=== PATIENT | male | born 1940 | race Caucasian/White ===

== ENCOUNTER 2024-07-28 12:53 | Outpatient (OUT) | payer OTHER, SELFPAY ==
--- NOTE | 2024-07-28 13:05 | CT_ITS ---
The [address] [address] Patient Name: RUBEN BRUNSON MRN: [id number] date: 1940 Sex: M Assigned Patient Location: CT Current Patient Location: CT Accession/Order Number: [id number] Exam Date: 07/28/2024 13:40 Report Date: 07/28/2024 13:43 At the request of: DAVINA PRETTY MD Procedure: CT abdomen pelvis wo con CT ABDOMEN AND PELVIS WITHOUT INTRAVENOUS CONTRAST: CLINICAL HISTORY: Gross hematuria COMPARISON: None TECHNIQUE: Spiral images were obtained through the abdomen and pelvis without intravenous contrast. This CT exam was performed using one or more following dose reduction techniques: Automated exposure control, adjustment of the mA and/or kV according to patient size, or use of iterative reconstruction technique. FINDINGS: Lung Bases: [Minimal atelectasis/scarring] Organs:Gallbladder evaluation due to lack of IV contrast. Liver gallbladder pancreas spleen and adrenal glands appear unremarkable. Cystic changes involving the kidneys. No stone or hydronephrosis. Abdominal aorta appears normal in caliber.[ GI: Stomach is grossly unremarkable. Small bowel appears nondilated. Colonic diverticulosis. Appendix is normal.[ Pelvis:[A bladder mass is seen involving the right lateral wall of the urinary bladder measuring approximately 4.0 x 3.6 x 2.8 cm. Prostatomegaly.] Peritoneum/Retroperitoneum:No free air or free fluid or lymphadenopathy.[ Abd wall/Bones:Abdominal wall demonstrates no acute findings. Osseous structures demonstrate degenerative change.[ CT/CT abdomen pelvis wo con IMPRESSION: Mass involving the right lateral wall of the urinary bladder 4.0 x 3.6 x 2.8 cm. Malignancy is suspected and correlation with cystoscopy is recommended. Impression dictated by: Dagoberto Dee Jr., D.O. 07/28/2024 1:43 PM Dictation Location: [place] [address] Electronically authenticated by: [id number] Y Date: 07/28/2024 13:43
== END 2024-07-28 12:54 | disposition home or self-care (01) ==
LOC: CT 12:57
PROVIDERS: Visit Provider Urology
DX: R31.0 Gross hematuria (principal); D41.4 Neoplasm of uncertain behavior of bladder
CPT/HCPCS: 74176

== ENCOUNTER 2024-08-19 13:25 | Outpatient (OUT) | payer OTHER, SELFPAY ==
--- OUTSIDE RECORDS SUMMARY | 2024-08-19 13:31 | XMS_ITS | Encounter Summary ---
Author Organization [facility] Address [address] [place] [address] Care Team Providers Care Marketing Education Teacher Name Role Phone Miranda Marquez MD Primary Care Provider [phone] Miranda Marquez MD Unavailable [phone] DelmiJosepha SARAH Unavailable [phone] Encounter Details Date Type Department Care Team (Late Contact Info) Description 08/11/2024 Telephone [facility] [address] [place] [address] Sugar Marte MA Social History Tobacco Use Types Packs/Day Years Used Date Smoking Tobacco: Former Cigarettes Smokeless Tobacco: Never Comments:Last smoked : > 20 years Alcohol Use Standard Drinks/Week Comments Not Currently 0 (1 standard drink = 0.6 oz pure alcohol) Caffeine intake: 3 cups per day coffee PHQ-2 Answer Date Recorded Patient Health Questionnaire-2 Score 0 03/05/2024 Sex and Gender Information Value Date Recorded Sex Assigned at Not on file Legal Sex Male 7:25 PM EDT Gender Identity Not on file Sexual Orientation Not on file documented as of this encounter Miscellaneous Notes * Telephone Encounter - Sugar Marte MA - 08/11/2024 8:19 AM EDT Open imaging for PFT, ask pt if they would like to complete. documented in this encounter Plan of Treatment Upcoming Encounters Date Type Department Care Team ([facility] Contact Info) Description 11/04/2024 1:30 PM EDT Procedure Visit [facility] [address] [place] [address] Galen Pratt, DPM [address] [place] [address] documented as of this encounter Visit Diagnoses Not on filedocumented in this encounter Additional Health Concerns Assessment Noted Time PHQ-9 Depression Total Score: 6 11/15/19 23 4:09 PM EDT documented as of this encounter Care Teams Marketing Education Teacher Relationship Specialty Start Date End Date Miranda Marquez MD [address] [place] [address] PCP - General Family Medicine 06/18/22 Miranda Marquez MD [address] [place] [address] PCP - Devoted 11/11/23 Jairo Awad LPN [address] [facility] [address] [place] [id number] Licensed Practical Nurse Family Medicine 05/12/24 documented as of this encounter
--- OUTSIDE RECORDS SUMMARY | 2024-08-19 13:31 | XMS_ITS | Encounter Summary ---
Author Organization [facility] Address [address] [place] [address] Care Team Providers Care Sealer Sander Name Role Phone Miranda Marquez MD Primary Care Provider [phone] Miranda Marquez MD Unavailable [phone] AwadJairo LPN Unavailable [phone] Encounter Details Date Type Department Care Team ([facility] st Contact Info) Description 08/18/2024 Telephone [facility] [address] [place] [address] Miranda Marquez MD [address] [place] [address] Social History Tobacco Use Types Packs/Day Years [...] encounter Miscellaneous Notes * Telephone Encounter - Elif Winkler MA - 08/18/2024 11:06 AM EDT Note faxed. * Telephone Encounter - KAI PASTOR - 08/18/2024 8:56 AM EDT Lexus calling from [facility], they are seeing patient tomorrow and would like pts last officenote sent. F#[phone] documented in this encounter Plan of Treatment Upcoming Encounters Date Type Department Care Team (Late st Contact Info) Description 11/04/2024 1:30 PM EDT Procedure Visit [facility] [address] [place] [phone] Galen Pratt [address] [place] [address] documented as of this encounter Visit Diagnoses Not on filedocumented in this encounter Additional Health Concerns Assessment Noted Time PHQ-9 Depression Total Score: 6 11/15/19 23 4:09 PM EDT documented as of this encounter Care Teams Sealer Sander Relationship Specialty Start Date End Date Miranda Marquez MD [address] [place] [address] PCP - General Family Medicine 06/18/22 Miranda Marquez MD [address] [place] [address] PCP - Devoted 11/11/23 Jairo Awad LPN [address] [facility] [address] [place] [address] Licensed Practical Nurse Family Medicine 05/12/24 documented as of this encounter
--- OUTSIDE RECORDS SUMMARY | 2024-08-19 13:31 | XMS_ITS | Encounter Summary ---
Author Organization [facility] Address [address] [place] [address] Care Team Providers Care Logging Assistant Name Role Phone Miranda Marquez MD Primary Care Provider [phone] Miranda Marquez MD Unavailable [phone] AwadJairo LPN Unavailable [phone] Encounter Details Date Type Department Care Team (Late Contact Info) Description 06/02/2024 Results Follow-Up [facility] [address] [place] [phone] Rachel Palomino NP [address] [place], [place] [phone] Social History Tobacco Use Types Packs/Day Years [...] on file documented as of this encounter Plan of Treatment Upcoming Encounters Date Type Department Care Team ([facility] Contact Info) Description 11/04/2024 1:30 PM EDT Procedure Visit [facility] [address] [place] [address] Galen Pratt, RYAN [address] [place], [place] [phone] documented as of this encounter Visit Diagnoses Not on filedocumented in this encounter Additional Health Concerns Assessment Noted Time PHQ-9 Depression Total Score: 6 11/15/19 23 4:09 PM EDT documented as of this encounter Care Teams Logging Assistant Relationship Specialty Start Date End Date Miranda Marquez MD [address] [place], [place] [phone] PCP - General Family Medicine 06/18/22 Miranda Marquez MD [address] [place], [place] [id number] PCP - Devoted 11/11/23 Jairo Awad LPN [address] [facility] [address] [place] [address] Licensed Practical Nurse Family Medicine 05/12/24 documented as of this encounter
--- OUTSIDE RECORDS SUMMARY | 2024-08-19 13:31 | XMS_ITS ---
Author Organization [facility] Address [address] [place] [address] Care Team Providers Care Print Finishing Worker Name Role Phone Miranda Marquez MD Primary Care Provider [phone] Miranda Marquez MD Unavailable [phone] Jairo Awad LPN Unavailable [phone] Chronic Care Management (CCM) Status:Enrolled (Active) Start date:01/16/2024 Enrollment date:01/16/2024 Overview Please assess for Care Management needs. Case Team Name Relationship Phone Jairo Awad LPN(Responsible Staff) Licensed Pr actical Nurse [phone] Continued Care and Services Coordination
--- OUTSIDE RECORDS SUMMARY | 2024-08-19 13:31 | XMS_ITS | Clinical Summary ---
Author Organization [facility] Healthcare Address [address] [place] [address] Care Team Providers Care Tactical Air Control Party Name Role Phone Miranda Marquez MD Primary Care Provider [phone] Miranda Marquez MD Unavailable [phone] AwadJosepha SARAH Unavailable [phone] Allergies Active Allergy Reactions Criticality Noted Date Comments Iodinated Contrast Media Unknown 08/04/2019 Iodine Unknown 04/18/2016 passed out Other reaction(s): Other: See Comments passed out Medications Multiple Vitamin (multivitamin) capsule Take 1 capsule by mouth Daily Active atorvastatin (Lipitor) 80 MG tabletIndications: Mixed hyperlipidemia TAKE 1 TABLET BY MOUTH IN THE MORNING 90 tablet 2 01/31/20 24 Active levothyroxine (Synthroid, Levoxyl) 88 MCG tabletIndications: Acquired hypothyroidism TAKE 1 TABLET BY MOUTH EVERY DAY IN THE MORNING 90 tablet 11 02/18/19 25 Active traZODone (Desyrel) 150 MG tabletIndications: Difficulty sleeping TAKE 1 TABLET BY MOUTH EVERYDAY AT BEDTIME 90 tablet 11 02/18/19 25 Active Additional Information Patient not taking.Reported on 06/01/2024 rivaroxaban (Xarelto) 15 MG tabletIndications: Acute pulmonary embolism without acute cor pulmonale, unspecified pulmonary embolism type (HCC) Take by mouth, 15mg BID x 21 days, then take 20mg one time daily. Take with food. 42 tablet 03/19/19 25 Active rivaroxaban (Xarelto) 20 MG tabletIndications: Acute pulmonary embolism without acute cor pulmonale, unspecified pulmonary embolism type (HCC) Take 1 tablet (20 mg) by mouth Daily Initially take by mouth 15mg BID x 21 days then take 20mg daily. Take with food. Do not start before 2024. 30 tablet 2 04/11/19 25 Active omeprazole (PriLOSEC) [address] capsuleIndications :Subacute cough TAKE 1 CAPSULE (20 MG) BY MOUTH IN THE MORNING. TAKE BEFORE MEALS. DO NOT CRUSH OR CHEW.. 90 capsule 05/18/19 25 Active Additional Information Patient not taking.Reported on 06/01/2024 albuterol HFA 90 mcg/act inhalerIndications :Subacute cough INHALE 2 PUFFS EVERY 4 HOURS IF NEEDED FOR WHEEZING. 18 g 3 05/18/19 25 Active terbinafine (LamISIL) 250 MG tabletIndications: Onychomycosis TAKE 1 TABLET BY MOUTH EVERY DAY 30 tablet 05/18/19 25 Active Active Problems Problem Noted Date Diagnosed Date Abnormal chest x-ray 09/24/2022 Acquired hypothyroidism 09/24/2022 Assessment & Plan (03/12/2024 10:33 PM EST): Continue synthroid. Age-related cognitive decline 09/24/2022 Arthralgia of right acromioclavicular joint 09/10 Atypical chest pain 09/24/2022 Difficulty sleeping 09/24/2022 Elevated antinuclear antibody (VESNA) level 2022 Gastroesophageal reflux disease without esophagi tis 09/24/2022 Gout of foot 09/24/2022 Malignant tumor of choroid 09/24/2022 Mixed hyperlipidemia 09/24/2022 Assessment & Plan (03/12/2024 10:34 PM EST): Continue lipitor. 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 [address] Miranda Tamayo RN 06/30/2024 Telephone [facility] [address] [place] [phone] Suagr Marte MA Error (VOID this visit) 06/29/2024 Telephone [facility] [address] [place] [phone] Miranda Marquez MD 06/02/2024 Patient Outreach [facility] [address] [place] [address] Miranda Tamayo RN 06/02/2024 Results Follow-Up [facility] [address] [place] [phone] Rachel Palomino NP 06/01/2024 4:00 PM EDT Office Visit [facility] [address] [place] [phone] Rachel Palomino NP Hematuria, unspecified type 06/01/2024 Travel 06/01/2024 Patient Outreach [facility] [address] [place] [address] Miranda Tamayo RN 05/31/2024 Results Follow-Up [facility] [address] [place] [phone] Magdalena Finnegan NP 05/27/2024 2:30 PM EDT Office Visit [facility] [address] [facility] [place] [phone] Magdalena Finnegan NP Hematuria, unspecified type (Primary Dx); Acute cystitis with hematuria 05/27/2024 Patient Outreach [facility] [address] [place] [address] Miranda Tamayo RN 05/27/2024 Bamboo flowsheet [facility] [address] [facility] [place] [phone] Magdalena Finnegan NP 05/27/2024 Travel from Last 3 Months Family History Medical History Relation Name Comments Hypertension Mother Relation Name Status Comments Brother 3 brothers Daughter Alive 1 daughter Father Mother Sister 1 sister Son Alive 2 sons Social History Tobacco Use Types Packs/Day Years Used Date Smoking Tobacco: Former Cigarettes Smokeless Tobacco: Never Tobacco Cessation:Counseling Given: Not Answered Comments:Last smoked : > 20 years Alcohol [...] on file Sexual Orientation Not on file Last Filed Vital Signs Vital Sign Reading Time Taken Comments Blood Pressure 126/72 06/01/2024 4:22 PM EDT Pulse 57 06/01/2024 4:22 PM EDT Temperature 36.4 C (97.5 F) 05/27/2024 2:26 PM EDT Respiratory Rate 18 04/05/2024 3:08 PM EST Oxygen Saturation 96% 06/01/2024 4:22 PM EDT Inhaled Oxygen Concentration - - Weight 63.8 kg (140 lb 9.6 oz) 06/01/2024 4:22 P M EDT Height 172.7 cm (5' 8 ) 06/01/2024 4:22 PM EDT Body Mass Index 21.38 06/01/2024 4:22 PM EDT Plan of Treatment Upcoming Encounters Date Type Department Care Team (Late st Contact Info) Description 11/04/2024 1:30 PM EDT Procedure Visit [facility] [address] [place] [address] Galen Pratt, [address] [place] [phone] Health Maintenance Due Date Last Done Comments Pneumococcal Vaccine: 65+ Years (1 of 1 - PCV) 993 Influenza Vaccine (#1) 2024 Procedures Procedure Name Priority Date/Time Associated Diagnosis Comments CBC (INCLUDES DIFF/PLT) Routine 06/01/2024 4:23 PM EDT Hematuria, unspecified type CULTURE, URINE, ROUTINE Routine 05/27/2024 3:00 PM EDT Hematuria, unspecified type POCT URINALYSIS DIPSTICK Routine 05/27/2024 2:40 PM EDT Hematuria, unspecified type from Last 3 Months Results * (ABNORMAL) CBC and differential (06/01/2024 4:23 PM EDT) WHITE BLOOD CELL COUNT 6.3 3.8 - 10.8 Thousand/u L [facility] RED BLOOD CELL COUNT 4.23 4.20 - 5.80 Million/uL [facility] HEMOGLOBIN 12.5(L) 13.2 - 17.1 g/dL [facility] HEMATOCRIT 38.7 38.5 - 50.0 % [facility] MCV 91.5 80.0 - 100.0 fL [facility] MCH 29.6 27.0 - 33.0 pg [facility] MCHC 32.3 32.0 - 36.0 g/dL [facility] Comment: For adults, a slight decrease in the calculated MCHC value (in the range of 30 to 32 g/dL) is most likely not clinically significant; however, it should be interpreted with caution in correlation with other red cell parameters and the patient's clinical condition. RDW 13.9 11.0 - 15.0 % [facility] PLATELET COUNT 164 140 - 400 Thousand/u L [facility] MPV 11.0 7.5 - 12.5 fL [facility] ABSOLUTE NEUTROPHILS 4,095 1,500 - 7,800 cells/uL [facility] ABSOLUTE LYMPHOCYTES 1,632 850 - 3,900 cells/uL [facility] ABSOLUTE MONOCYTES 441 200 - 950 cells/uL [facility] ABSOLUTE EOSINOPHILS 113 15 - 500 cells/uL [facility] ABSOLUTE BASOPHILS 19 0 - 200 cells/uL [facility] NEUTROPHILS 65 % [facility] LYMPHOCYTES 25.9 % [facility] MONOCYTES 7.0 % [facility] EOSINOPHILS 1.8 % [facility] BASOPHILS 0.3 % [facility] Blood Venous blood specimen / Unknown 06/01/2024 4:23 PM EDT 06/01/2024 4:23 PM EDT Narrative Resulting Agency Comment Performing Organization Information Site ID: QPT Name: [facility] Address: [address] [place] [address], [address] [place] [phone] Director: Devaughn Knutson MD us Rachel Palomino CHEST PAINTING LEADER LAB BLOOD ORDERABLES Final Resu lt Performing Organization Address [facility] de Phone Number [facility] * Urine culture (05/27/2024 3:00 PM EDT) MICRO NUMBER [id number] [facility] SPECIMEN QUALITY Adequate [facility] SOURCE: ([facility]) URINE [facility] STATUS FINAL [facility] RESULT SEE NOTE [facility] Comment: Less than 10,000 CFU/mL of single Gram negative organism isolated. No further testing will be performed. If clinically indicated, recollection using a method to minimize contamination, with prompt transfer to Urine Culture Transport Tube, is recommended. Urine Urine specimen obtained by clean catch procedure / Unknown 05/27/2024 3:00 PM EDT 05/27/2024 3:00 PM EDT Narrative Resulting Agency Comment Performing Organization Information Site ID: QPT Name: [facility] Address: [address] [place] [address], [address] [place] [phone] Director: Devaughn Knutson MD us Magdalena Finnegan CHEST PAINTING LEADER LAB MICROBIOLOGY - GENE RAL ORDERABLES Final Result Performing Organization Address [facility] de Phone Number [facility] * POCT urinalysis dipstick manually resulted (05/27/2024 2:40 PM EDT) Color, UA Red Clarity, UA Cloudy Glucose, UA Negative Negative - 2000(110) ++++ mg/dL Bilirubin, UA Negative Negative - 4(70) +++ mg/dL Ketones, UA Positive Negative - 160(16) ++++ mg/dL Spec Grav, UA 1.025 1 - 1.03 Blood, UA Positive Negative - 50 Albin/mcL pH, UA 6.0 5 - 9 Protein, UA Positive Negative - 1999(20) ++++ mg/dL Urobilinogen, UA 1.0 0.2 - 12 mg/dL Leukocytes, UA Positive Negative - 500+++ Tatianna/mcL Nitrite, UA Negative Negative - Positive Urine 05/27/2024 2:40 PM EDT Magdalena Finnegan CHEST PAINTING LEADER POINT OF CARE TEST ENTE R/EDIT ORDERABLES Final Result from Last 3 Months Insurance [facility] MEDICARE SUPPLEMENT FORMERLY [facility] Care Teams Tactical Air Control Party Relationship Specialty Start Date End Date Miranda Marquez MD [address] [place] [address] PCP - General Family Medicine 06/18/22 Miranda Marquez MD [address] [place] [address] PCP - Devoted 11/11/23 Jairo Awad LPN [address] [place] [address] Licensed Practical Nurse Family Medicine 05/12/24
--- OUTSIDE RECORDS SUMMARY | 2024-08-19 13:32 | XMS_ITS | Clinical Summary ---
Author Organization [employer] [facility] Address [id number] [address] [place] [address] Care Team Providers Care Arts And Sciences Dean Name Role Phone Miranda Marquez MD Primary Care Provider [phone] Allergies Active Allergy Reactions Criticality Noted Date Comments Iodinated Contrast Media 07/05/2021 Pt states it 'gave him a heart attack'. Iodine 04/18/2016 Other reaction(s): Other: See Comments passed out Medications atorvastatin (LIPITOR) 80 mg tablet Take 1 tablet (80 mg total) by mouth in the morning. Active levothyroxine sodium (TIROSINT) 88 mcg capsule Take 1 capsule (88 mcg total) by mouth in the morning. Active traZODone (DESYREL) 150 mg tablet Active tetrahydrozoline HCl/zinc sulf (EYE DROPS ALLERGY RELIEF OPHT) Instill 1 drop to eye as needed. Active ferrous sulfate 325 (65 FE) mg tablet Take 1 tablet (325 mg total) by mouth daily with breakfast. Active metoprolol succinate XL (TOPROL XL) 25 mg 24 hr tabletIndication s:PAC (premature atrial contraction) Take 0.5 tablets (12.5 mg total) by mouth in the morning. 90 tablet 3 2 Active Additional Information Patient not taking.Reported on 03/17/2024 acetaminophen (TYLENOL EXTRA STRENGTH) 500 mg tablet Take 1 tablet (500 mg total) by mouth every 6 (six) hours as needed for pain. Active warfarin (COUMADIN) 5 mg tabletIndication s:Acute pulmonary embolism without acute cor pulmonale, unspecified pulmonary embolism type (CMS-HCC) Take 1-1.5 tablets (5-7.5 mg total) by mouth in the evening. 90 tablet 1 Active Additional Information Patient not taking.Reported on 03/17/2024 terbinafine (LamISIL) 250 mg tablet Take 1 tablet (250 mg total) by mouth in the morning. Active Active Problems Problem Noted Date Diagnosed Date Shortness of breath 03/07/2022 Acute pulmonary embolism without acute cor pulmo nale 03/07/2022 Elevated d-dimer 03/07/2022 Chest pain 03/07/2022 Abnormal EKG 10/23/2021 Other hyperlipidemia 10/23/2021 Resolved Problems Problem Noted Date Diagnosed Date Resolved Date senior living (current) use of anticoagulants 03/19/2022 03/22/2022 Acute pulmonary embolism wit hout acute cor pulmonale, unspecified pulmonary embolism type 03/11/2022 03/22/2022 Encounters Date Type Department Care Team Description 07/07/2024 Telephone [facility] [address] [place] [address] Lin Garcia from Last 3 Months Family History Medical History Relation Name Comments Hypertension Mother Relation Name Status Comments Father Mother Social History Tobacco Use Types Packs/Day Years Used Date Smoking Tobacco: Former Cigarettes Q uit: 1982 Smokeless Tobacco: Former Tobacco Cessation:Counseling Given: Not Answered Alcohol Use Standard Drinks/Week Comments Not Currently 0 (1 standard drink = 0.6 oz pur e alcohol) Childcare Answer Date Recorded Childcare Unknown 07/22/2018 Employment Answer Date Recorded Employment Unknown 07/22/2018 Hunger Screening Answer Date Recorded Within the past 12 months we worried whether our food would run out before we got money to buy more. Never True 03/01/2024 Within the past 12 months th e food we bought just didn't last and we didn't have money to get more. Never True 03/01/2024 Purpose - Life Answer Date Recorded Purpose and direction in life Unknown Sex and Gender Information Value Date Recorded Sex Assigned at Not on file Legal Sex Male 11:37 AM EDT Gender Identity Not on file Sexual Orientation Not on file Last Filed Vital Signs Vital Sign Reading Time Taken Comments Blood Pressure 133/59 03/01/2024 10:06 AM EST Pulse 64 03/01/2024 11:44 AM EST Temperature 36.5 C (97.7 F) 03/01/2024 10:06 AM EST Respiratory Rate 20 03/01/2024 11:44 AM EST Oxygen Saturation 97% 03/01/2024 10:06 AM EST Inhaled Oxygen Concentration - - Weight 63.5 kg (140 lb) 03/01/2024 10:06 AM EST Height 172.7 cm (5' 8 ) 03/01/2024 10:06 AM EST Body Mass Index 21.29 03/01/2024 10:06 AM EST Plan of Treatment Health Maintenance Due Date Last Done Comments Depression Screening 1952 DTaP,Tdap and Td Vaccines (1 - Tdap) 1961 Zoster (Shingles) Vaccine (1 of 2) 1961 Fall Risk Screening 04/11/2007 Influenza Vaccine 10/11/2024 Tobacco Screening 03/17/2025 03/17/2024 Goals Goal Patient Goal Type Associated Problems Recent Progress Patient-Stated? Author safe discharge to home General Yes Che Guajardo, RN Note: Evaluation of progress towards goal: safe transition from hospital to home with family support. Medical Devices Not on file Insurance [employer]IC[employer]VANTAGE Advance Directives * Full Code (Latest Code Status on File) Date Activated Date Inactivated Comments 03/07/2022 7:01 PM 03/11/2022 5:51 PM Care Teams Arts And Sciences Dean Relationship Specialty Start Date End Date Miranda Marquez MD [address] [place] [address] PCP - General Family Medicine 07/19/16
--- OUTSIDE RECORDS SUMMARY | 2024-08-19 13:32 | XMS_ITS | Encounter Summary ---
Author Organization [facility] Address [address] [place] [address] Care Team Providers Care Staff Midwife/Apprenticeship Director Name Role Phone Miranda Marquez MD Primary Care Provider [phone] Miranda Marquez MD Unavailable [phone] Miranda Tamayo RN Unavailable [phone] Miranda Marquez MD Unavailable [phone] Jairo Awad LPN Unavailable [phone] Encounter Details Date Type Department Care Team ([facility] Contact Info) Description 03/20/2024 Abstract [facility] [address] [place] [address] Miranda Marquez MD [address], [place] [phone] Social History Tobacco Use Types Packs/Day Years [...] Upcoming Encounters Date Type Department Care Team ([facility] Contact Info) Description 11/04/2024 1:30 PM EDT Procedure Visit [facility] [address] [place] [address] Galen Pratt, DPHeide [address] [place] [address] documented as of this encounter Visit Diagnoses Not on filedocumented in this encounter Additional Health Concerns Assessment Noted Time PHQ-9 Depression Total Score: 6 11/15/19 23 4:09 PM EDT documented as of this encounter Care Teams Staff Midwife/Apprenticeship Director Relationship Specialty Start Date End Date Miranda Marquez MD [address] [place] [address] PCP - General Family Medicine 06/18/22 Miranda Marquez MD [address] [place] [address] PCP - Devoted 11/11/23 Miranda Marquez MD [address] [place] [address] PCP - ACO Reach 03/26/24 05/13/24 Miranda Tamayo, RN [address] [place] [address] Registered Nurse Family Medicine 01/16/24 05/12/24 Jairo Awad LPN [address] [place] [address] Licensed Practical Nurse Family Medicine 05/12/24 documented as of this encounter
--- OUTSIDE RECORDS SUMMARY | 2024-08-19 13:32 | XMS_ITS | Encounter Summary ---
Author Organization [facility] Address [id number] [address] [place] [address] Care Team Providers Care Infantry Assaultman Name Role Phone Miranda Marquez MD Primary Care Provider [phone] Encounter Details Date Type Department Care Team ([facility] Contact Info) Description 07/07/2024 Telephone [facility] [address] [place] [address] Lin Garcia Social History Tobacco Use Types Packs/Day Years Used Date Smoking Tobacco: Former Cigarettes Q uit: 1982 Smokeless Tobacco: Former Alcohol Use Standard Drinks/Week Comments Not Currently [...] as of this encounter Plan of Treatment Not on file documented as of this encounter Goals Goal Patient Goal Type Associated Problems Recent Progress Patient-Stated? Author safe discharge to home General Yes Che Guajardo, RN Note: Evaluation of progress towards goal: safe transition from hospital to home with family support. documented as of this encounter Visit Diagnoses Not on filedocumented in this encounter Care Teams Infantry Assaultman Relationship Specialty Start Date End Date Miranda Marquez MD [address] [place] [address] PCP - General Family Medicine 07/19/16 documented as of this encounter
--- OUTSIDE RECORDS SUMMARY | 2024-08-19 13:32 | XMS_ITS | Encounter Summary ---
Author Organization [facility] Address [facility] [place] [address] Care Team Providers Care Expansion Joint Finisher Name Role Phone Jimmy Miranda Lamar Primary Care Provider [phone] Nelson Gruber Unavailable [phone] Matt Winters MD Unavailable Cristopher Bernstein MD Unavailable Source Comments In the event this information is protected by the Federal Confidentiality of Alcohol and Drug AbusePatient Records regulations: The Federal rules restrict any use of the information to criminally investigate or prosecute any alcohol or drug abuse patient.[facility] Encounter Details Date Type Department Care Team (Late st Contact Info) Description 05/12/2016 Abstract Radiation Oncology [address] [place] [id number] Nelson Knight (Res)(Hist), [address] [place] [address] Social History Tobacco Use Types Packs/Day Years Used Date Smoking Tobacco: Former Smokeless Tobacco: Never Alcohol Use Standard Drinks/Week Comments No 0 (1 standard drink = 0.6 oz pur e alcohol) Sex and Gender Information Value Date Recorded Sex Assigned at Not on file Legal Sex Male 8:40 AM EST Gender Identity Not on file Sexual Orientation Not on file documented as of this encounter Plan of Treatment Not on file documented as of this encounter Visit Diagnoses Not on filedocumented in this encounter Care Teams Expansion Joint Finisher Relationship Specialty Start Date End Date Jimmy Miranda Newton [address] [place] [place] [address] PCP - General Family Medicine 04/04/16 Nelson Gruber [address] [facility] [address] [place] [address] Referring Ophthalmology 04/04/16 [place] [address] [place] [address] Radiation Oncology 04/30/16 Cristopher Bernstein MD [address] [facility] [address] [place] [address] Referring Ophthalmology 03/23/24 documented as of this encounter
--- OUTSIDE RECORDS SUMMARY | 2024-08-19 13:32 | XMS_ITS | Clinical Summary ---
Author Organization [facility] Address [address] [place], [place] [id number] Care Team Providers Care Mount Loader Name Role Phone Jimmy, Miranda Lamar Primary Care Provider [phone] Nelson Gruber Unavailable [phone] Matt Winters MD Unavailable AmandeepCristopher mares MD Unavailable [phone] Allergies Active Allergy Reactions Criticality Noted Date Comments Iodine Other: See Comments 04/18/2016 passed out Medications DOCOSAHEXANOIC ACID/EPA (FISH OIL ORAL)Indication s:Choroid melanoma of left eye (HCC) Take by mouth once daily. Active DEXT 70/POLYCARBOPHI L/PEG/NACL (ARTIFICIAL TEAR SOLUTION OPHTHALMIC)Ann cations:Choroid melanoma of left eye (HCC) Use in eyes as needed. Active atorvastatin (LIPITOR) 20 mg tabletIndicatio ns:Choroid melanoma of left eye (HCC) Take 20 mg by mouth once daily. Active Levothyroxine 88 mcg capIndications: Choroid melanoma of left eye (HCC) Take by mouth once daily. Active CALCIUM CARBONATE/VITAM IN D3 (VITAMIN D-3 ORAL)Indication s:Choroid melanoma of left eye (HCC) Take by mouth once daily. Active vit C,Z-Ml-jcara-rosario tein-zeaxan [phone] ho-gvwz-um-mg capIndications: Choroid melanoma of left eye (HCC) Take by mouth once daily. Active cyclopentolate (CYCLOGYL) 0.5 % ophthalmic solution Use 1 Drop in the left eye twice daily. 0 7 Active neomycin/polymy makenzie b/dexametha(MAX ITROL 3.5 MG/G-10,000 UNIT/G-0.1 % EYE OINTMENT) Use 1 application in the left eye twice daily. 1 Tube 3 7 Active traZODone (DESYREL) 150 mg tabletIndicatio ns:Choroid melanoma of left eye (HCC) Take 150 mg by mouth daily at bedtime. 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 High cholesterol Family History Medical History Relation Comments Cataract Brother Heart Brother Relation Status Comments Brother Social History Tobacco Use Types Packs/Day Years [...] Sign Reading Time Taken Comments Blood Pressure 140/68 05/20/2016 12:45 PM EDT Pulse 65 05/20/2016 12:45 PM EDT Temperature 36.9 C (98.4 F) 05/20/2016 11:09 AM EDT Respiratory Rate 18 05/20/2016 12:45 PM EDT Oxygen Saturation 95% 05/20/2016 12:45 PM EDT Inhaled Oxygen Concentration - - Weight 71.2 kg (157 lb) 05/18/2016 8:00 AM EDT Height 172.7 cm (5' 8 ) 05/18/2016 8:00 AM EDT Body Mass Index 23.87 05/18/2016 8:00 AM EDT Plan of Treatment Health Maintenance Due Date Last Done Comments Anxiety Screening 1958 Depression Screening 1958 DTaP,Tdap,Td Vaccine (1 - Tdap) 1961 Pneumococcal Vaccine: 50+ (1 of 1 - PCV) 1992 Shingrix Vaccine (1 of 2) 1992 RSV Vaccine (1 - 1-dose 75+ series) 2017 Diabetes Screening 05/16/2019 05/15/2016 Covid-19 Vaccine ( season) 2023 Advance Directive Discussion 02/11/2024 Influenza Vaccine (#1) 2024 Procedures Procedure Name Priority Date/Time Associated Diagnosis Comments COMPREHENSIVE METABOLIC PANEL Routine 05/15/2016 9:30 AM EDT from Last 3 Months or Most Recently Relevant to Health Maintenance Results * (ABNORMAL) COMP METABOLIC PANEL (05/15/2016 9:30 AM EDT) Pathologist [facility] Protein, Total 7.5 6.3 - 8.0 g/dL 05/15/2016 11:20 AM EDT [facility] Albumin 4.4 3.9 - 4.9 g/dL 05/15/2016 11:20 AM T [facility] Calcium 9.4 8.5 - 10.2 mg/dL 05/15/2016 11:20 AM T [facility] Bilirubin, Total 0.8 0.2 - 1.3 mg/dL 05/15/2016 11:20 AM T [facility] Alkaline Phosphatase 129(H) 36 - 108 U/L 05/15/2016 11:20 AM [facility] AST 26 14 - 40 U/L 05/15/2016 11:20 AM [facility] Glucose 121(H) 74 - 99 mg/dL 05/15/2016 11:20 AM [facility] Comment: The [place] Diabetes Association (ADA) provides guidance for cutoff values for fasting glucose and random glucose. The ADA defines fasting as no caloric intake for at least 8 hours. Fasting plasma glucose results between 100 to 125 mg/dL indicate increased risk for diabetes (prediabetes). Fasting plasma glucose results greater than or equal to 126 mg/dL meet the criteria for diagnosis of diabetes. In the absence of unequivocal hyperglycemia, results should be confirmed by repeat testing. In a patient with classic symptoms of hyperglycemia or hyperglycemic crisis, random plasma glucose results greater than or equal to 200 mg/dL meet the criteria for diagnosis of diabetes. Reference: Standards of Medical Care in Diabetes 2016, [place] Diabetes Association. Diabetes Care. 2016.39(Suppl 1). BUN 14 9 - 24 mg/dL 05/15/2016 11:20 AM T [facility] Creatinine 1.03 0.73 - 1.22 mg/dL 05/15/2016 11:20 AM EDT [facility] Sodium 139 136 - 144 mmol/L 05/15/2016 11:20 AM EDT [facility] Potassium 4.2 3.7 - 5.1 mmol/L 05/15/2016 11:20 AM EDT [facility] Chloride 98 97 - 105 mmol/L 05/15/2016 11:20 AM EDT [facility] CO2 25 22 - 30 mmol/L 05/15/2016 11:20 AM T [facility] Anion Gap 16 9 - 18 mmol/L 05/15/2016 11:20 AM [facility] ALT 29 10 - 54 U/L 05/15/2016 11:20 AM T [facility] eGFR- >60 05/15/2016 11:20 AM [facility] eGFR-All Other Races >60 . 05/15/2016 11:20 AM [facility] Comment: eGFR (Estimated GFR) Units of measure: mL/min/1.73 meters squared eGFR is derived from the reexpressed MDRD Study equation using the following parameters: serum creatinine, age, gender and race. The creatinine assay has been calibrated to be traceable to IDMS. An eGFR <60 mL/min/1.73m2 for >3 months is consistent with chronic kidney disease. Refer to KDOQI guidelines for clinical interpretation. In patients with unstable renal function, e.g. those with acute kidney injury, the eGFR may not accurately reflect actual GFR. 05/15/2016 9:30 AM EDT 05/15/2016 10:00 AM EDT us Baudilio Lizama MD LABORATORY Final Result [facility] [address] [place] [address] from Last 3 Months or Most Recently Relevant to Health Maintenance Insurance [place]IC[place] [id number] [facility] [address] Care Teams Mount Loader Relationship Specialty Start Date End Date Miranda Marquez [address] [place] [phone] PCP - General Family Medicine 04/04/16 Nelson Gruber [address] [address] Referring Ophthalmology 04/04/16 [place] [address] [place] [address] Radiation Oncology 04/30/16 Cristopher Bernstein MD [address] [place] [address] Referring Ophthalmology 03/23/24
--- OUTSIDE RECORDS SUMMARY | 2024-08-19 13:32 | XMS_ITS | Encounter Summary ---
Author Organization [facility] Address [id number] [address] [place] [address] Care Team Providers Care Soft Drink Powder Mixer Name Role Phone Miranda Marquez MD Primary Care Provider [phone] Encounter Details Date Type Department Care Team ([facility] Contact Info) Description 03/17/2024 Telephone [facility] [address] [facility] [address] [place] [address] Nadeen Gonzales COA Social History Tobacco Use Types Packs/Day Years [...] encounter Miscellaneous Notes * Telephone Encounter - Florence Noble - 03/17/2024 3:30 PM EST Avastin PA APPROVED with [facility] Request#[id number] documented in this encounter Plan of Treatment Not on file documented as of this encounter Goals Goal Patient Goal Type Associated Problems Recent Progress Patient-Stated? Author safe discharge to home General Yes Che Guajardo, RN Note: Evaluation of progress towards goal: safe transition from hospital to home with family support. documented as of this encounter Visit Diagnoses Not on filedocumented in this encounter Care Teams Soft Drink Powder Mixer Relationship Specialty Start Date End Date Miranda Marquez MD [address] [place] [address] PCP - General Family Medicine 07/19/16 documented as of this encounter
--- NOTE | 2024-08-19 13:37 | ECG_ITS ---
The [facility] Test Date: 2024-08-19 Pat Name: RUBEN BRUNSON Department: Room: - Gender: Male Environmental Quality Analyst: : 1940 Requested By: [id number] Order Number: [id number] Reading MD: Measurements Intervals [place] Rate: 60 P: 83 ID: [id number] QRS: -38 QRSD: 115 T: 73 QT: 424 QTc: 424 Interpretive Statements SINUS RHYTHM WITH FIRST DEGREE AV BLOCK MARKED LEFT AXIS DEVIATION [QRS AXIS < -30] SEPTAL MYOCARDIAL INFARCTION [40+ ms Q WAVE IN V1/V2], OF INDETERMINATE AGE No previous ECG available for comparison
--- NOTE | 2024-08-19 14:25 | PM.PRESUREVA ---
History of Present Illness History of Present Illness Chief complaint: Bladder Neoplasm Narrative: Patient presents for presurgical testing. Please see HPI from Dr. Pradhan dated August 12, 2024. Review of Systems ROS Narrative Please see ROS from Dr. Pradhan dated August 12, 2024. [facility] Medical History (Updated 08/19/24 @ 14:22 by Debbi Rowan NP) History of blood transfusion ?Z92.89 - Personal history of other medical treatment (ICD-10) H/O reduction of closed fracture ?Z87.81 - Personal history of (healed) traumatic fracture (ICD-10) Leg fracture ?S82.90XA - Unspecified fracture of unspecified lower leg, initial encounter for closed fracture (ICD-10) BPH with obstruction/lower urinary tract symptoms ?N40.1 - Benign prostatic hyperplasia with lower urinary tract symptoms (ICD-10) ?N13.8 - Other obstructive and reflux uropathy (ICD-10) Anticoagulated ?Z79.01 - termination clerk (current) use of anticoagulants (ICD-10) Bleeding ulcer ?K28.4 - Chronic or unspecified gastrojejunal ulcer with hemorrhage (ICD-10) Shoulder pain ?M25.519 - Pain in unspecified shoulder (ICD-10) Cataract ?H26.9 - Unspecified cataract (ICD-10) 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 ?C69.32 - Malignant neoplasm of left choroid (ICD-10) Pulmonary embolism (~2022) ?I26.99 - Other pulmonary embolism without acute cor pulmonale (ICD-10) Abnormal EKG ?R94.31 - Abnormal electrocardiogram [ECG] [EKG] (ICD-10) Vitamin D deficiency ?E55.9 - Vitamin D deficiency, unspecified (ICD-10) Low hematocrit ?D64.9 - Anemia, unspecified (ICD-10) Chronic pain ?G89.29 - Other chronic pain (ICD-10) Hyperlipidemia ?E78.5 - Hyperlipidemia, unspecified (ICD-10) Gout ?M10.9 - Gout, unspecified (ICD-10) GERD (gastroesophageal reflux disease) ?K21.9 - Gastro-esophageal reflux disease without esophagitis (ICD-10) Elevated antinuclear antibody (VESNA) level ?R76.8 - Other specified abnormal immunological findings in serum (ICD-10) Atypical chest pain ?R07.89 - Other chest pain (ICD-10) Age-related cognitive decline ?R41.81 - Age-related cognitive decline (ICD-10) Hypothyroidism (acquired) ?E03.9 - Hypothyroidism, unspecified (ICD-10) Abnormal chest x-ray ?R93.89 - Abnormal findings on diagnostic imaging of other specified body structures (ICD-10) Hematuria ?R31.9 - Hematuria, unspecified (ICD-10) Hearing loss ?H91.90 - Unspecified hearing loss, unspecified ear (ICD-10) 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 - Neoplasm of unspecified behavior of bladder (ICD-10) Surgical History (Updated 08/19/24 @ 14:06 by Debbi Rowan NP) History of esophagogastroduodenoscopy (EGD) ?Z98.890 - Other specified postprocedural states (ICD-10) H/O cystoscopy ?Z98.890 - Other specified postprocedural states (ICD-10) H/O eye surgery ?Z98.890 - Other specified postprocedural states (ICD-10) Family History (Updated 08/19/24 @ 14:09 by Debbi Rowan NP) Other Family history of hypertension Social History (Updated 08/19/24 @ 14:05 by Debbi Rowan NP) Within the past year, how often did you have a drink containing alcohol: never Score interpretation: A score less than 4 is consistent with normal alcohol consumption. Smoking status: Former smoker Non-prescribed substance use: denies use Highest level of school completed/degree received: high school graduate Meds Home Medications and Allergies Home Medications ?Medication ?Instructions ?Recorded ?Confirmed ?Type albuterol sulfate 90 mcg/actuation 2 inh inhalation Q4H PRN shortness 08/19/24 08/19/24 History aerosol inhaler of breath or wheezing atorvastatin 80 mg tablet 80 mg PO DAILY 08/19/24 08/19/24 History cholecalciferol (vitamin D3) 50 2,000 unit PO DAILY 08/19/24 08/19/24 History mcg (2,000 unit) capsule finasteride 5 mg tablet 5 mg PO DAILY 08/19/24 08/19/24 History levothyroxine 88 mcg tablet 88 mcg PO DAILY 08/19/24 08/19/24 History magnesium glycinate 100 mg (as 100 mg PO DAILY 08/19/24 08/19/24 History glycinate) tablet mecobalamin (vitamin B12) 2,500 2,500 mcg PO DAILY 08/19/24 08/19/24 History mcg chewable tablet omeprazole 20 mg capsule,delayed 20 mg PO DAILY 08/19/24 08/19/24 History release potassium 99 mg tablet 99 mg PO DAILY 08/19/24 08/19/24 History rivaroxaban 20 mg tablet (Xarelto) 20 mg PO Q24H 08/19/24 08/19/24 History terbinafine HCl 250 mg tablet 250 mg PO DAILY 08/19/24 08/19/24 History trazodone 150 mg tablet 150 mg PO QPM 08/19/24 08/19/24 History vitamin A-vitamin C-vit E-min 1 tab PO DAILY 08/19/24 08/19/24 History tablet (Vision tablet) vitamin K2 100 mcg capsule 100 mcg PO DAILY 08/19/24 08/19/24 History Allergies Allergy/AdvReac Type Severity Reaction Status Date / Time Iodinated Contrast Media Allergy Unknown Verified 08/19/24 13:54 Exam Narrative Exam Narrative: Constitutional: Awake, alert, comfortable, well-appearing, nontoxic, interactive, vital signs as charted Head: Normocephalic, atraumatic Neck: Supple, normal appearance, normal range of motion, no meningeal signs, no lymphadenopathy Respiratory: No respiratory distress, breath sounds clear Cardiovascular: Regular rate and rhythm, strong and regular heart tones Abdomen: Nontender, normal bowel sounds, soft, no CVA tenderness Musculoskeletal: Normal gait, no swelling or edema Skin: No rashes or induration, no lesions, only visible skin inspected Neuro: No neurological deficits, normal sensation Psychiatric: Oriented ?3, normal affect Assessment and Plan Assessment and Plan (1) Bladder neoplasm: Plan Cystoscopy, TURBT, bilateral retrograde pyelogram, possible right stent placement scheduled with Dr. Pradhan September 01, 2024.
[2024-08-19 14:35] LABS: Hematocrit 40.0 % (42.0-54.0); Hemoglobin 13.1 g/dL (14.0-18.0); Immature Granulocytes Abs Auto 0.00 10^3/uL (0.00-0.03); Immature Granulocytes Pct Auto 0.0 % (0.0-0.5); Lymphocytes Absolute Auto 1.3 10^3/uL (1.2-3.8); Mean Corpuscular HGB Conc 32.8 g/dL (29.9-35.2); Mean Corpuscular Hemoglobin 29.0 pg (25.9-34.0); Mean Corpuscular Volume 88.5 fL (80.0-94.0); Platelet Count 153 10^3/uL (150-450); Red Blood Count 4.52 10^6/uL (4.70-6.10); White Blood Count 4.6 10^3/uL (4.0-11.0)
[2024-08-19 14:36] LABS: Glucose Urine UA NEGATIVE (NEGATIVE)
[2024-08-19 14:42] LABS: Anion Gap 14.2; Blood Urea Nitrogen 17.0 mg/dL (7.0-18.0); Calcium 9.2 mg/dL (8.5-10.1); Carbon Dioxide 27.5 mmol/L (21.0-32.0); Chloride 106 mmol/L (98-107); Estimated GFR (African America >60 (>=60 mL/min/1.73m^2); Estimated GFR (Non-African Ame 59 (>=60 mL/min/1.73m^2); Glucose 127 mg/dL (74-106); Potassium 4.7 mmol/L (3.5-5.1); Sodium 143 mmol/L (136-145)
[2024-08-19 14:56] LABS: INR 1.07; Partial Thromboplastin Time 29.5 sec (22.3-36.2); Prothrombin Time 11.3 sec (9.0-11.6)
[2024-08-19 15:06] LABS: Crystals Seen? None Seen #/HPF (None Seen)
[2024-08-19 15:08] LABS: Cast Seen? SEEN #/LPF (NONE SEEN); Urine Culture Indicated NO
== END 2024-08-19 13:26 | disposition home or self-care (01) ==
LOC: PST 13:29
PROVIDERS: Visit Provider Urology
DX: Z01.810 Encounter for preprocedural cardiovascular examination (principal); Z01.812 Encounter for preprocedural laboratory examination; Z01.818 Encounter for other preprocedural examination; D41.4 Neoplasm of uncertain behavior of bladder
CPT/HCPCS: 80048; 81001; 85025; 85610; 85730; 93005; G0463

== ENCOUNTER 2024-10-12 13:27 | Outpatient (OUT) | payer OTHER, SELFPAY ==
[2024-10-12 14:13] LABS: Glucose Urine UA NEGATIVE (NEGATIVE)
[2024-10-12 14:21] LABS: Anion Gap 10.6; Blood Urea Nitrogen 17.0 mg/dL (7.0-18.0); Calcium 8.8 mg/dL (8.5-10.1); Carbon Dioxide 28.1 mmol/L (21.0-32.0); Chloride 106 mmol/L (98-107); Estimated GFR (African America >60 (>=60 mL/min/1.73m^2); Estimated GFR (Non-African Ame 57 (>=60 mL/min/1.73m^2); Glucose 97 mg/dL (74-106); Potassium 4.7 mmol/L (3.5-5.1); Sodium 140 mmol/L (136-145)
[2024-10-12 14:28] LABS: Hematocrit 36.5 % (42.0-54.0); Hemoglobin 12.2 g/dL (14.0-18.0); Immature Granulocytes Abs Auto 0.02 10^3/uL (0.00-0.03); Immature Granulocytes Pct Auto 0.5 % (0.0-0.5); Lymphocytes Absolute Auto 1.1 10^3/uL (1.2-3.8); Mean Corpuscular HGB Conc 33.4 g/dL (29.9-35.2); Mean Corpuscular Hemoglobin 29.8 pg (25.9-34.0); Mean Corpuscular Volume 89.2 fL (80.0-94.0); Platelet Count 145 10^3/uL (150-450); Red Blood Count 4.09 10^6/uL (4.70-6.10); White Blood Count 4.3 10^3/uL (4.0-11.0)
[2024-10-12 15:17] LABS: Cast Seen? NONE SEEN #/LPF (NONE SEEN); Crystals Seen? None Seen #/HPF (None Seen)
[2024-10-13 15:05] LABS: INR 1.07; Partial Thromboplastin Time 28.8 sec (22.3-36.2); Prothrombin Time 11.3 sec (9.0-11.6)
== END 2024-10-12 13:28 | disposition home or self-care (01) ==
LOC: PST 13:28
PROVIDERS: PCP Family Medicine; Visit Provider Urology
DX: Z01.812 Encounter for preprocedural laboratory examination (principal); D49.4 Neoplasm of unspecified behavior of bladder
CPT/HCPCS: 80048; 81001; 85025; 85610; 85730

== ENCOUNTER 2024-10-20 11:46 | Day surgery (SDC) | payer OTHER, SELFPAY ==
[2024-08-19 14:19] VITALS: BP 132/63; PULSE 65; TEMP 36.3; O2SAT 97; BMI 20.9
[2024-10-12 13:47] VITALS: BP 118/66; PULSE 97; TEMP 36.4; O2SAT 97; BMI 21.1
--- OUTSIDE RECORDS SUMMARY | 2024-10-18 13:00 | XMS_ITS | Encounter Summary ---
Author Organization [facility] Address [address] [place] [address] Care Team Providers Care Beef Pluck Trimmer Name Role Phone Miranda Marquez MD Primary Care Provider [phone] Miranda Marquez MD Unavailable [phone] AwadJairo LPN Unavailable [phone] Encounter Details Date Type Department Care Team (Late Contact Info) Description 10/18/2024 1:00 PM EDT Ancillary Procedure [facility] [address] [address] Arrived Social History Tobacco Use Types Packs/Day Years [...] Upcoming Encounters Date Type Department Care Team ([facility] Contact Info) Description 11/04/2024 1:30 PM EDT Procedure Visit [facility] [address] [place] [phone] Galen Pratt DPM [address] [place], [place] [id number] Pending Results Name Type Priority Associated Diagnoses Date /Time Pulmonary Function Test Imaging Routine Subacute cough 10/18/2024 1:33 PM EDT documented as of this encounter Visit Diagnoses Not on filedocumented in this encounter Additional Health Concerns Assessment Noted Time PHQ-9 Depression Total Score: 6 11/15/19 4:09 PM EDT documented as of this encounter Care Teams Beef Pluck Trimmer Relationship Specialty Start Date End Date Miranda Marquez MD [address] [place] [address] PCP - General Family Medicine 06/18/22 Miranda Marquez MD [address] [place] [address] PCP - Devoted 11/11/23 Jairo Awad LPN [address] [facility] [address] [place] [address] Licensed Practical Nurse Family Medicine 05/12/24 documented as of this encounter
[2024-10-20] VITALS (12 sets, daily range): BP systolic 119–141; BP diastolic 56–81; PULSE 55–73; TEMP 36.1–36.8; O2SAT 95–97; BMI 20.2
--- OUTSIDE RECORDS SUMMARY | 2024-10-20 11:48 | XMS_ITS | Clinical Summary ---
Author Organization [facility] Address [address] [place], [place] [address] Care Team Providers Care Ginner Helper Name Role Phone Miranda Marquez MD Primary Care Provider Nelson Gruber Unavailable [phone] Matt Winters MD Unavailable Cristopher Bernstein MD Unavailable [phone] Allergies Active Allergy Reactions Criticality Noted [...] Take by mouth once daily. Active vit C,Y-Fy-rbafp-rosario tein-zeaxan [id number] qs-hpya-wg-mg capIndications: Choroid melanoma of left eye (HCC) [...] 75+ series) 2017 Diabetes Screening 05/16/2019 05/15/2016 Advance Directive Discussion 02/11/2024 Influenza Vaccine (#1) 2024 Procedures Procedure Name Priority Date/Time Associated Diagnosis Comments COMPREHENSIVE METABOLIC PANEL Routine 05/15/2016 9:30 AM EDT from Last 3 Months or Most Recently Relevant to Health Maintenance Results * (ABNORMAL) COMP METABOLIC PANEL (05/15/2016 9:30 AM EDT) Protein, Total 7.5 6.3 - 8.0 g/dL 05/15/2016 11:20 AM EDT [facility] Albumin 4.4 3.9 - 4.9 g/dL 05/15/2016 11:20 AM [facility] Calcium 9.4 8.5 - 10.2 mg/dL 05/15/2016 11:20 AM [facility] Bilirubin, Total 0.8 0.2 - 1.3 mg/dL 05/15/2016 11:20 AM [facility] Alkaline Phosphatase 129(H) 36 - 108 U/L 05/15/2016 11:20 AM [facility] AST 26 14 - 40 U/L 05/15/2016 11:20 AM [facility] Glucose 121(H) 74 - 99 mg/dL 05/15/2016 11:20 AM [facility] Comment: The [place] Diabetes Association (ADA) provides guidance for cutoff [...] Standards of Medical Care in Diabetes 2016, [place] Diabetes Association. Diabetes Care. 2016.39(Suppl 1). BUN 14 9 - 24 mg/dL 05/15/2016 11:20 AM T [facility] Creatinine 1.03 0.73 - 1.22 mg/dL 05/15/2016 11:20 AM EDT [facility] Sodium 139 136 - 144 mmol/L 05/15/2016 11:20 AM EDT [facility] Potassium 4.2 3.7 - 5.1 mmol/L 05/15/2016 11:20 AM EDT [facility] Chloride 98 97 - 105 mmol/L 05/15/2016 11:20 AM EDT [facility] CO2 25 22 - 30 mmol/L 05/15/2016 11:20 AM EDT [facility] Anion Gap 16 9 - 18 mmol/L 05/15/2016 11:20 AM EDT [facility] ALT 29 10 - 54 U/L 05/15/2016 11:20 AM EDT [facility] eGFR- >60 05/15/2016 11:20 AM T [facility] eGFR-All Other Races >60 . 05/15/2016 11:20 AM T [facility] Comment: eGFR (Estimated GFR) [...] us Baudilio Lizama MD LABORATORY Final Result [facility] [address] [place] [address] from Last 3 Months or Most Recently Relevant to Health Maintenance [place] [address] HOSPITAL[facility]MEDICAL GENERIC [facility] HMO Care Teams Ginner Helper Relationship Specialty Start Date End Date Miranda Marquez MD [address] [place] [address] PCP - General Family Medicine 04/04/16 Nelson Gruber [address] [facility] [address] [place] [address] Referring Ophthalmology 04/04/16 [place] [address] [place] [address] Radiation Oncology 04/30/16 Cristopher Bernstein MD [address] [place] [address] Referring Ophthalmology 03/23/24
--- OUTSIDE RECORDS SUMMARY | 2024-10-20 11:48 | XMS_ITS | Clinical Summary ---
Author Organization [facility] Address [address] [place] [address] Care Team Providers Care Grinder Operator Tool Name Role Phone Unavailable Primary Care Provider Unavailabl e Social History Tobacco Use Types Packs/Day Years Used Date Smoking Tobacco: Never Assessed Sex and Gender Information Value Date Recorded Sex Assigned at Not on file Legal Sex Male 9:06 PM EDT Gender Identity Not on file Sexual Orientation Not on file Last Filed Vital Signs Vital Sign Reading Time Taken Comments Blood Pressure 118/60 12/11/2018 3:18 PM EDT Pulse - - Temperature - - Respiratory Rate - - Oxygen Saturation 97% 12/11/2018 3:19 PM EDT Inhaled Oxygen Concentration - - Weight 63.5 kg (140 lb) 12/11/2018 3:18 PM EDT Height 172.7 cm (5' 8 ) 12/11/2018 3:18 PM EDT Body Mass Index 21.29 12/11/2018 3:18 PM EDT Plan of Treatment Health Maintenance Due Date Last Done Comments Medicare Annual Wellness (AWV) 1942 Depression Screening 1954 Adult Tetanus 1964 Pneumococcal Vaccine: 50+ Ye ars (1 of 1 - PCV) 1992 Zoster Vaccines (1 of 2) 1992 Fall Risk Screening 04/11/2007 COVID-19 Vaccine ( - 2023-2 5 season) 2024 Influenza Vaccine (#1) 2024 HIB Vaccines Aged Out No longer eligi ble based on patient's age to complete this topic HPV Vaccines Aged Out No longer eligi ble based on patient's age to complete this topic IPV Vaccines Aged Out No longer eligi ble based on patient's age to complete this topic Meningococcal B Vaccine Aged Out No l onger eligible based on patient's age to complete this topic Meningococcal Vaccine Aged Out No laquita shane eligible based on patient's age to complete this topic Rotavirus Vaccines Aged Out No longer eligible based on patient's age to complete this topic Insurance HEALTH
--- OUTSIDE RECORDS SUMMARY | 2024-10-20 11:48 | XMS_ITS | Encounter Summary ---
Author Organization [facility] Address [address] [place] [address] Care Team Providers Care Kitchen Work Supervisor Name Role Phone Miranda Marquez MD Primary Care Provider [phone] Miranda Marquez MD Unavailable [phone] Jairo Awad LPN Unavailable [phone] Encounter Details Date Type Department Care Team (Late Contact Info) Description 10/12/2024 Clinisync Result Encounter NOM External Department Unsolicited Provider, Generic External Data Social History Tobacco Use Types Packs/Day Years [...] EDT Procedure Visit [facility] [address] [place] [address] Galen Pratt DPM [address] [place] [address] documented as of this encounter Procedures Procedure Name Priority Date/Time Associated Diagnosis Comments TB URINE MICROSCOPIC ONLY Routine 10/12/2024 1:55 PM EDT TB[facility] UA (CLEAN/CATCH) PROSTHETIC ASSISTANT/MICRO IF IND. Routine 10/12/2024 1:55 PM EDT [facility] PROTHROMBIN TIME INR W/O COUM Routine 10/12/2024 1:50 PM EDT [facility] APTT Routine 10/12/2024 1:50 PM EDT ALL CBC WITH AUTO DIFF Routine 10/12/2024 1:50 PM EDT ALL BASIC METABOLIC PANEL Routine 10/12/2024 1:50 PM EDT documented in this encounter Results * (ABNORMAL) TBH URINE MICROSCOPIC ONLY (10/12/2024 1:55 PM EDT) TBH WBC 2-5(A) NONE SEEN #/HPF TBH TBH RBC 75-100(A) 0 - 2 #/HPF TBH BACTERIA URINE TRACE(A) NONE SEEN #/HPF TBH MUCUS URINE SMALL(A) NONE SEEN TBH SQUAMOUS EPITHELIAL CELL URINE FEW(A) NONE/RARE #/LPF TBH CRYSTALS SEEN? None Seen None Seen #/HPF TBH CAST SEEN? NONE SEEN NONE SEEN #/LPF [facility] 10/12/2024 1:55 PM EDT 10/12/2024 2:06 PM EDT Narrative [facility] - 10/12/2024 3:18 PM EDT us Generic External Data Provider [facility] F inal Result [facility] TB * (ABNORMAL) TBH UA (CLEAN/CATCH) PROSTHETIC ASSISTANT/MICRO IF IND. (10/12/2024 1:55 PM EDT) COLOR URINE RED(A) YELLOW TBH CLARITY URINE SL CLOUDY CLEAR TBH SPECIFIC GRAVITY URINE 1.010 1.005 - 1.025 TBH PH URINE 7.0 5.0 - 9.0 TBH PROTEIN URINE 100(A) NEG/TRACE mg/dL TBH GLUCOSE URINE UA NEGATIVE NEGATIVE mg/dL TBH BILIRUBIN URINE NEGATIVE NEGATIVE TBH KETONES URINE NEGATIVE NEGATIVE mg/dL TBH BLOOD URINE LARGE(A) NEGATIVE TBH NITRITE URINE NEGATIVE NEGATIVE TBH UROBILINOGEN URINE 0.2 0.2 - 1.0 EU/dL TBH LEUKOCYTE ESTERASE URINE TRACE(A) NEGATIVE TBH URINE MICROSCOPIC INDICATED YES TBH 10/12/2024 1:55 PM EDT 10/12/2024 2:06 PM EDT Narrative [facility] - 10/12/2024 3:18 PM EDT Generic External Data Provider CLINIS[facility]NC F inal Result Performing Organization Address [facility] de Phone Number [facility] * [facility] APTT (10/12/2024 1:50 PM EDT) PARTIAL THROMBOPLASTIN TIME 28.8 22.3 - 36.2 sec [facility] 10/12/2024 1:50 PM EDT 10/12/2024 1:58 PM EDT Narrative [facility] - 10/13/2024 3:34 PM EDT Generic External Data Provider [facility] F inal Result Performing Organization Address [facility] de Phone Number FLAKO [facility] * [facility] PROTHROMBIN TIME INR W/O COUM (10/12/2024 1:50 PM EDT) PROTHROMBIN TIME 11.3 9.0 - 11.6 sec [facility] INR 1.07 [facility] Comment: DESIRED INR: 2.0-3.0 CONDITIONS NOT LISTED BELOW 2.5-3.5 FOR PROSTHETIC HEART VALVE REPLACEMENT 2.5-3.5 RECURRENT THROMBOSIS 10/12/2024 1:50 PM EDT 10/12/2024 1:58 PM EDT Narrative [facility] - 10/13/2024 3:34 PM EDT Generic External Data Provider [facility] F inal Result Performing Organization Address [facility] Co de Phone Number FLAKO TB * (ABNORMAL) ALL CBC WITH AUTO DIFF (10/12/2024 1:50 PM EDT) [facility] TB WBC 4.3 4.0 - 11.0 10 3/uL TBH TBH RBC 4.09(L) 4.70 - 6.10 10 6/uL TBH TBH HGB 12.2(L) 14.0 - 18.0 g/dL TBH TBH HCT 36.5(L) 42.0 - 54.0 % TBH TBH MCV 89.2 80.0 - 94.0 fL TBH TBH MCH 29.8 25.9 - 34.0 pg TBH TBH MCHC 33.4 29.9 - 35.2 g/dL TBH TBH RDW 13.9 11.0 - 15.0 % TBH TBH PLT 145(L) 150 - 450 10 3/uL TBH TBH MPV 10.9 9.5 - 13.5 fL TBH NEUTROPHILS PERCENT AUTO 64.6 43.0 - 75.0 % TBH LYMPHOCYTES PERCENT AUTO 24.9 20.5 - 60.0 % TBH MONOCYTES PERCENT AUTO 7.4 1.7 - 12.0 % TBH TBH EO % 2.1 0.9 - 7.0 % TBH BASOPHILS PERCENT AUTO 0.5 0.2 - 2.0 % TBH IMMATURE GRANULOCYTES PCT AUTO 0.5 0.0 - 0.5 % TBH NEUTROPHILS ABSOLUTE AUTO 2.8 1.4 - 6.5 10 3/uL TBH LYMPHOCYTES ABSOLUTE AUTO 1.1(L) 1.2 - 3.8 10 3/uL TBH MONOCYTES ABSOLUTE AUTO 0.3 0.3 - 0.8 10 3/uL TBH TBH EO # 0.1 0.0 - 0.7 10 3/uL TBH BASOPHILS ABSOLUTE AUTO 0.0 0.0 - 0.1 10 3/uL TBH IMMATURE GRANULOCYTES ABS AUTO 0.02 0.00 - 0.03 10 3/uL TBH 10/12/2024 1:50 PM EDT 10/12/2024 1:58 PM EDT Narrative [facility] - 10/12/2024 2:38 PM EDT us Generic External Data Provider CLIN[facility] F inal Result Performing Organization Address [facility] de Phone Number FLAKO TB * (ABNORMAL) ALL BASIC METABOLIC PANEL (10/12/2024 1:50 PM EDT) SODIUM 140 136 - 145 mmol/L TBH POTASSIUM 4.7 3.5 - 5.1 mmol/L TBH CHLORIDE 106 98 - 107 mmol/L TBH CARBON DIOXIDE 28.1 21.0 - 32.0 mmol/L TBH ANION GAP 10.6 TBH GLUCOSE 97 74 - 106 mg/dL TBH BLOOD UREA NITROGEN 17.0 7.0 - 18.0 mg/dL TBH CREATININE 1.21 0.70 - 1.30 mg/dL TBH TBH EGFR-AF [place] >60 >=60 mL/min/1.7 3m 2 TBH TBH EGFR-NON AF [place] 57(L) >=60 mL/min/1.7 3m 2 TBH BUN CREATININE RATIO 14.0 TBH CALCIUM 8.8 8.5 - 10.1 mg/dL TBH 10/12/2024 1:50 PM EDT 10/12/2024 1:58 PM EDT Narrative [facility] - 10/12/2024 2:29 PM EDT Generic External Data Provider [facility] F inal Result Performing Organization Address [facility] de Phone Number FLAKO TB documented in this encounter Visit Diagnoses Not on filedocumented in this encounter Additional Health Concerns Assessment Noted Time PHQ-9 Depression Total Score: 6 11/15/19 23 4:09 PM EDT documented as of this encounter Care Teams Kitchen Work Supervisor Relationship Specialty Start Date End Date Miranda Marquez MD [address] [facility] [place] [address] PCP - General Family Medicine 06/18/22 Miranda Marquez MD [address] [place] [address] PCP - Devoted 11/11/23 Jairo Awad, SARAH [address] [facility] [address] [place] [address] Licensed Practical Nurse Family Medicine 05/12/24 documented as of this encounter
--- OUTSIDE RECORDS SUMMARY | 2024-10-20 11:48 | XMS_ITS | Encounter Summary ---
Author Organization [facility] Address [id number] [address] [place] [address] Care Team Providers Care Health Outcomes Liaison Name Role Phone Miranda Marquez MD Primary Care Provider [phone] Encounter Details Date Type Department Care Team ([facility] Contact Info) Description 03/17/2024 Telephone [facility] [address] [facility] [address] [place] [address] Nadeen Gonzales COA Social History Tobacco Use [...] 3:30 PM EST Avastin PA APPROVED with [facility] Request#[id number] documented in this encounter Plan of Treatment [...] on filedocumented in this encounter Care Teams Health Outcomes Liaison Relationship Specialty Start Date End Date Miranda Marquez MD [address] [place] [address] PCP - General Family Medicine 07/19/16 documented as of this encounter
--- OUTSIDE RECORDS SUMMARY | 2024-10-20 11:48 | XMS_ITS | Clinical Summary ---
Author Organization [facility] Healthcare Address [address] [place] [address] Care Team Providers Care Locomotive Crane Operator Helper Name Role Phone Miranda Marquez MD Primary Care Provider [phone] Miranda Marquez MD Unavailable [phone] AwadJairo LPN Unavailable [phone] Allergies Active Allergy Reactions Criticality Noted Date Comments Iodinated Contrast Media Unknown 08/04/2019 Iodine Unknown 04/18/2016 passed out Other reaction(s): Other: See Comments passed out Medications Multiple Vitamin (multivitamin) capsule Take 1 capsule by mouth Daily Active atorvastatin (Lipitor) 80 MG tabletIndications :Mixed hyperlipidemia TAKE 1 TABLET BY MOUTH IN THE MORNING 90 tablet 2 01/31/20 24 Active levothyroxine (Synthroid, Levoxyl) 88 MCG tabletIndications :Acquired hypothyroidism TAKE 1 TABLET BY MOUTH EVERY DAY IN THE MORNING 90 tablet 11 02/18/19 25 Active traZODone (Desyrel) 150 MG tabletIndications :Difficulty sleeping TAKE 1 TABLET BY MOUTH EVERYDAY AT BEDTIME 90 tablet 11 02/18/19 25 Active rivaroxaban (Xarelto) 20 MG tabletIndications :Acute pulmonary embolism without acute cor pulmonale, unspecified pulmonary embolism type (HCC) Take 1 tablet (20 mg) by mouth Daily Initially take by mouth 15mg BID x 21 days then take 20mg daily. Take with food. Do not start before 2024. 30 tablet 2 04/11/19 25 Active omeprazole (PriLOSEC) [address] capsuleIndication s:Subacute cough TAKE 1 CAPSULE (20 MG) BY MOUTH IN THE MORNING. TAKE BEFORE MEALS. DO NOT CRUSH OR CHEW.. 90 capsule 05/18/19 25 Active albuterol HFA 90 mcg/act inhalerIndication s:Subacute cough INHALE 2 PUFFS EVERY 4 HOURS IF NEEDED FOR WHEEZING. 18 g 3 05/18/19 25 Active finasteride (Proscar) 5 MG tablet Take 5 mg by mouth Daily 07/15/19 25 Active Menatetrenone (Vitamin K2) 100 MCG tablet Take by mouth Active cyanocobalamin (Vitamin B-12) 2500 MCG tablet Take by mouth Daily Active Potassium 99 MG tablet Take by mouth Active cholecalciferol (Vitamin D-3) 50 MCG (1999 UT) tablet Take 2,000 Units by mouth Daily Active magnesium 200 MG tablet Take by mouth Active rivaroxaban (Xarelto) 15 MG tabletIndications :Acute pulmonary embolism without acute cor pulmonale, unspecified pulmonary embolism type (HCC) Take by mouth, 15mg BID x 21 days, then take 20mg one time daily. Take with food. 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 10/0 06/2022 Encounters Date Type Department Care Team Description 10/18/2024 1:00 PM EDT [facility] [address] [facility] [address] [place] [address] Arrived 10/18/2024 Travel 10/12/2024 Clinisync Result Encounter [facility] External Department Unsolicited Provider, Generic External Data 10/07/2024 [facility] [address] [facility] [place] [address] Sugar Marte MA 09/29/2024 [facility] [address] [facility] [place] [address] Miranda Marquez MD 09/28/2024 9:30 AM EDT Consult [facility] Medicine [address] [facility] [place] [address] Miranda Marquez MD Elevated glucose (Primary Dx); Abnormal EKG 09/28/2024 Bamboo flowsheet [facility] [address] [facility] [place] [address] Miranda Marquez MD 09/28/2024 Travel 09/24/2024 [facility] [address] [facility] [place] [address] Cydney Rawls MA 08/25/2024 [facility] [address] [place] [address] Miranda Smallwood MA 08/18/2024 Telephone [facility] Medicine [address] [facility] [place] [place] [address] Miranda Marquez MD 08/11/2024 Telephone [facility] [address] [facility] [place] [address] Sugar Marte MA from Last 3 Months Family History Medical [...] Sign Reading Time Taken Comments Blood Pressure 110/70 09/28/2024 9:40 AM EDT Pulse 65 09/28/2024 9:40 AM EDT Temperature 36.4 C (97.5 F) 05/27/2024 2:26 PM EDT Respiratory Rate 18 04/05/2024 3:08 PM EST Oxygen Saturation 97% 09/28/2024 9:40 AM EDT Inhaled Oxygen Concentration - - Weight 60.8 kg (134 lb) 09/28/2024 9:40 AM EDT Height 172.7 cm (5' 8 ) 09/28/2024 9:40 AM EDT Body Mass Index 20.37 09/28/2024 9:40 AM EDT Plan of Treatment Upcoming Encounters Date Type Department Care Team (Late st Contact Info) Description 11/04/2024 1:30 PM EDT Procedure Visit [facility] [facility] [address] [place] [address] Galen Pratt DPM [address] [place] [address] Health Maintenance Due Date Last Done Comments Pneumococcal Vaccine: 65+ Years (1 of 1 - PCV) 993 Influenza Vaccine (#1) 2024 Procedures Procedure Name Priority Date/Time Associated Diagnosis Comments TBH URINE MICROSCOPIC ONLY Routine 10/12/2024 1:55 PM EDT TBH UA (CLEAN/CATCH) LINK CUTTER/MICRO IF IND. Routine 10/12/2024 1:55 PM EDT [facility] APTT Routine 10/12/2024 1:50 PM EDT SRM[facility] PROTHROMBIN TIME INR W/O COUM Routine 10/12/2024 1:50 PM EDT ALL CBC WITH AUTO DIFF Routine 10/12/2024 1:50 PM EDT ALL BASIC METABOLIC PANEL Routine 10/12/2024 1:50 PM EDT POCT GLYCOSYLATED HEMOGLOBIN (HGB A1C) Routine 09/28/2024 10:22 AM EDT Elevated glucose from Last 3 Months Results * (ABNORMAL) TBH URINE MICROSCOPIC ONLY [...] EDT Generic External Data Provider CLINISYNC F madeleinel Result Performing Organization Address [facility] Co de Phone Number FLAKO [facility] * (ABNORMAL) TBH UA (CLEAN/CATCH) LINK CUTTER/MICRO IF IND. (10/12/2024 1:55 PM EDT) COLOR [...] 3:18 PM EDT Generic External Data Provider CLINMARCO salvadorl Result Performing Organization Address [facility] de Phone Number FLAKO [facility] * [facility] PROTHROMBIN TIME INR W/O COUM (10/12/2024 1:50 PM EDT) PROTHROMBIN TIME 11.3 9.0 - 11.6 sec TB TBH INR 1.07 TBH Comment: DESIRED INR: 2.0-3.0 CONDITIONS NOT LISTED BELOW 2.5-3.5 FOR PROSTHETIC HEART VALVE REPLACEMENT 2.5-3.5 RECURRENT THROMBOSIS 10/12/2024 1:50 PM EDT 10/12/2024 1:58 PM EDT Narrative CLINISYNC - 10/13/2024 3:34 PM EDT Generic External Data Provider CLINISYNC F inal Result Performing Organization Address [facility] Co de Phone Number CLINISYNC TB * [facility] APTT (10/12/2024 1:50 PM EDT) Pathologist [facility] PARTIAL THROMBOPLASTIN TIME 28.8 22.3 - 36.2 sec [facility] 10/12/2024 1:50 PM EDT 10/12/2024 1:58 PM EDT Narrative CLINISYNC - 10/13/2024 3:34 PM EDT us Generic External Data Provider CLINISYNC F inal Result CLINISYNC [facility] * (ABNORMAL) ALL CBC WITH AUTO DIFF (10/12/2024 1:50 PM EDT) [facility] WBC 4.3 4.0 - 11.0 10 3/uL TBH TB RBC 4.09(L) 4.70 - 6.10 10 6/uL TBH TB HGB 12.2(L) 14.0 - 18.0 g/dL TB TB HCT 36.5(L) 42.0 - 54.0 % TBH TB MCV 89.2 80.0 - 94.0 fL TB TB MCH 29.8 25.9 - 34.0 pg TBH TB MCHC 33.4 29.9 - 35.2 g/dL TB TB RDW 13.9 11.0 - 15.0 % TBH TBH PLT 145(L) 150 - 450 10 3/uL TBH TB MPV 10.9 9.5 - 13.5 fL TBH [...] Narrative CLINISYNC - 10/12/2024 2:38 PM EDT Generic External Data Provider [facility]NC F [facility]al [facility] * (ABNORMAL) ALL BASIC METABOLIC PANEL (10/12/2024 [...] 0.70 - 1.30 mg/dL TBH TBH EGFR-AF JAPANESE >60 >=60 mL/min/1.7 3m 2 TBH TBH EGFR-NON AF JAPANESE 57(L) >=60 mL/min/1.7 3m 2 TBH BUN CREATININE RATIO 14.0 TBH CALCIUM 8.8 8.5 - 10.1 mg/dL TBH 10/12/2024 1:50 PM EDT 10/12/2024 1:58 PM EDT Narrative CLINISYNC - 10/12/2024 2:29 PM EDT Generic External Data Provider CLINISYNC F inal Result CLINISYNC [facility] * POCT glycosylated hemoglobin (Hb A1C) docked device (09/28/2024 10:22 AM EDT) Hemoglobin A1C 5.5 Blood Venous blood specimen / Unknown 09/28/2024 10:22 AM EDT Miranda Marquez MD POINT OF CARE TEST ENTER/EDIT ORDERABLES Final Result from Last 3 Months Insurance [facility] MEDICARE SUPPLEMENT [facility] Care Teams Locomotive Crane Operator Helper Relationship Specialty Start Date End Date Miranda Marquez MD [address] [place] [address] PCP - General Family Medicine 06/18/22 Miranda Marquez MD [address] [place] [address] PCP - Devoted 11/11/23 Jairo Awad LPN [address] [place] [address] Licensed Practical Nurse Family Medicine 4/2/25
--- OUTSIDE RECORDS SUMMARY | 2024-10-20 11:48 | XMS_ITS | Encounter Summary ---
Author Organization [facility] Healthcare Address [address] [place] [address] Care Team Providers Care Hospital Pharmacy Director Name Role Phone Miranda Marquez MD Primary Care Provider [phone] Miranda Marquez MD Unavailable [phone] Miranda Tamayo RN Unavailable [phone] Miranda Marquez MD Unavailable [phone] Jairo Awad LPN Unavailable [phone] Encounter Details Date Type Department Care Team ([facility] Contact Info) Description 03/20/2024 Abstract [facility] [place] [facility] [address] [place] [address] Miranda Marquez MD [address] [place], [place] [id number] Social History Tobacco Use Types Packs/Day Years [...] Upcoming Encounters Date Type Department Care Team ([facility] Contact Info) Description 11/04/2024 1:30 PM EDT [facility] [address] [place] [address] Galen Pratt, DPHeide [address] [place] [address] documented as of this encounter Visit Diagnoses Not on filedocumented in this encounter Additional Health Concerns Assessment Noted Time PHQ-9 Depression Total Score: 6 11/15/19 23 4:09 PM EDT documented as of this encounter Care Teams Hospital Pharmacy Director Relationship Specialty Start Date End Date Miranda Marquez MD [address] [place] [address] PCP - General Family Medicine 06/18/22 Miranda Marquez MD [address] [place] [address] PCP - Devoted 11/11/23 Miranda Marquez MD [address] [place] [address] PCP - ACO Reach 03/26/24 05/13/24 Miranda Tamayo, RN [address] [place] [address] Registered Nurse Family Medicine 01/16/24 05/12/24 Jairo Awad, SARAH [address] [facility] [address] [place] [address] Licensed Practical Nurse Family Medicine 05/12/24 documented as of this encounter
--- OUTSIDE RECORDS SUMMARY | 2024-10-20 11:48 | XMS_ITS | Encounter Summary ---
Author Organization [facility] Healthcare Address [address] [place] [address] Care Team Providers Care Feature Writer Name Role Phone Miranda Marquez MD Primary Care Provider Miranda Marquez MD Unavailable [phone] Jairo Awad LPN Unavailable [phone] Encounter Details Date Type Department Care Team (Latest Contact Info) Description 06/02/2024 Results [facility] [place] [facility] [address] [place] [address] Rachel Palomino NP [address] [place], [place] [id number] CBC and differential Social History Tobacco Use Types Packs/Day Years [...] Description 11/04/2024 1:30 PM EDT [facility] [address] [place] [phone] Galen Pratt DPM [address] [place] [address] documented as of this encounter Visit Diagnoses Not on filedocumented in this encounter Additional Health Concerns Assessment Noted Time PHQ-9 Depression Total Score: 6 11/15/19 23 4:09 PM EDT documented as of this encounter Care Teams Feature Writer Relationship Specialty Start Date End Date Miranda Marquez MD [address] [place] [address] PCP - General Family Medicine 06/18/22 Miranda Marquez MD [address] [facility] [place] [address] PCP - Devoted 11/11/23 Jairo Awad LPN [address] [place] [address] Licensed Practical Nurse Family Medicine 05/12/24 documented as of this encounter
--- OUTSIDE RECORDS SUMMARY | 2024-10-20 11:48 | XMS_ITS | Encounter Summary ---
Author Organization [facility] Healthcare Address [address] [place] [address] Care Team Providers Care Prize Fighter Name Role Phone Miranda Marquez MD Primary Care Provider [phone] Miranda Marquez MD Unavailable [phone] AwadJairo LPN Unavailable [phone] Encounter Details Date Type Department Care Team (Late st Contact Info) Description 10/07/2024 Telephone [facility] [address] [place] [address] Sugar Marte MA Social History [...] encounter Miscellaneous Notes * Telephone Encounter - Isabell Valdivia - 10/07/2024 11:16 AM EDT Pt returned your call, he will have the pulmonary function test done and I transferred him to imaging. * Telephone Encounter - Sugra Marte MA - 10/07/2024 10:33 AM EDT Leftvm for pt to call back. Pt has a pulmonary function test to complete documented in this encounter Plan of Treatment Upcoming Encounters Date Type Department Care Team (Late st Contact Info) Description 11/04/2024 1:30 PM EDT Procedure Visit [facility] [address] [place] [phone] Galen Pratt DPM [address] [place] [address] documented as of this encounter Visit Diagnoses Not on filedocumented in this encounter Additional Health Concerns Assessment Noted Time PHQ-9 Depression Total Score: 6 11/15/19 23 4:09 PM EDT documented as of this encounter Care Teams Prize Fighter Relationship Specialty Start Date End Date Miranda Marquez MD [address] [place] [address] PCP - General Family Medicine 06/18/22 Miranda Marquez MD [address] [place] [address] PCP - Devoted 11/11/23 Jairo Awad LPN [address] [place] [address] Licensed Practical Nurse Family Medicine 05/12/24 documented as of this encounter
--- OUTSIDE RECORDS SUMMARY | 2024-10-20 11:48 | XMS_ITS | Clinical Summary ---
Author Organization [employer] tem Address [id number] [address] [place] [address] Care Team Providers Care Pension Consultant Name Role Phone Miranda Marquez MD Primary Care Provider [phone] Allergies Active Allergy Reactions Criticality Noted Date [...] morning. Active traZODone (DESYREL) 150 mg tablet Take 150 mg by mouth nightly. Active tetrahydrozoline HCl/zinc sulf (EYE DROPS ALLERGY [...] Active Additional Information Patient not taking.Reported on 09/30/2024 acetaminophen (TYLENOL EXTRA STRENGTH) 500 mg tablet Take 1 tablet (500 mg total) by mouth every 6 (six) hours as needed for pain. Active warfarin (COUMADIN) 5 mg tabletIndication s:Acute pulmonary embolism without acute cor pulmonale, unspecified pulmonary embolism type (CMS-HCC) Take 1-1.5 tablets (5-7.5 mg total) by mouth in the evening. 90 tablet 1 3 Active Additional Information Patient not taking.Reported on 09/30/2024 terbinafine (LamISIL) 250 mg tablet Take 1 tablet (250 mg total) by mouth in the morning. Active rivaroxaban (XARELTO) 20 mg tablet tablet Take 1 tablet (20 mg total) by mouth in the morning. 5 Active cyanocobalamin, vitamin B-12, 2,500 mcg tablet Take 2,500 mg by mouth in the morning. Active finasteride (PROSCAR) 5 mg tablet Take 1 tablet (5 mg total) by mouth in the morning. 5 Active omeprazole (PriLOSEC) 20 mg capsule Take 1 capsule (20 mg total) by mouth every morning before breakfast. Active vitamin K2 100 mcg capsule Take by mouth. Act sara potassium gluconate 600 mg (99 mg) tablet Take 99 mg by mouth in the morning. Active magnesium 200 mg tablet Take 200 mg by mouth in the morning. Active cholecalciferol, vitamin D3, 2,000 units tablet Take 1 tablet (2,000 Units total) by mouth in the morning. Active Active Problems Problem Noted Date Diagnosed Date Shortness of breath 03/07/2022 Acute pulmonary embolism without acute cor pulmo nale 03/07/2022 Elevated d-dimer 03/07/2022 Chest pain 03/07/2022 Abnormal EKG 10/23/2021 Other hyperlipidemia 10/23/2021 Resolved Problems Problem Noted Date Diagnosed Date Resolved Date retirement (current) use of anticoagulants 03/19/2022 03/22/2022 Acute pulmonary embolism wit hout acute cor pulmonale, unspecified pulmonary embolism type 03/11/2022 03/22/2022 Encounters Date Type Department Care Team Description 09/30/2024 12:45 PM EDT Office Visit [facility] [address] [place] [address] Brittny Soni MD PAC (premature atrial contraction) (Primary Dx) 09/30/2024 Travel 09/29/2024 Telephone [facility] [address] [place] [address] Jerilyn Flores CMA 09/29/2024 Telephone [facility] [address] [place] [address] Jerilyn Flores CMA from Last 3 Months Family History Medical [...] got money to buy more. Never True 09/30/2024 Within the past 12 months th e food we bought just didn't last and we didn't have money to get more. Never True 09/30/2024 Purpose - Life Answer Date Recorded Purpose and direction in life Unknown Sex and Gender Information Value Date Recorded Sex Assigned at Not on file Legal Sex Male 11:37 AM EDT Gender Identity Not on file Sexual Orientation Not on file Last Filed Vital Signs Vital Sign Reading Time Taken Comments Blood Pressure 108/56 09/30/2024 12:39 PM EDT Pulse 65 09/30/2024 12:39 PM EDT Temperature 36.5 C (97.7 F) 03/01/2024 10:06 AM EST Respiratory Rate 20 03/01/2024 11:44 AM EST Oxygen Saturation 99% 09/30/2024 12:39 PM EDT Inhaled Oxygen Concentration - - Weight 61.2 kg (135 lb) 09/30/2024 12:39 PM EDT Height 172.7 cm (5' 8 ) 09/30/2024 12:39 PM EDT Body Mass Index 20.53 09/30/2024 12:39 PM EDT Plan of Treatment Health Maintenance Due Date Last Done Comments Depression Screening 1952 DTaP,Tdap and Td Vaccines (1 - Tdap) 1961 Zoster (Shingles) Vaccine (1 of 2) 1961 Fall Risk Screening 04/11/2007 Influenza Vaccine 10/11/2024 Tobacco Screening 03/17/2025 03/17/2024 Goals Goal Patient Goal Type Associated Problems Recent Progress Patient-Stated? Author safe discharge to home General Yes Che Guajardo RN Note: Evaluation of progress towards goal: safe transition from hospital to home with family support. Medical Devices Not on file Procedures Procedure Name Priority Date/Time Associated Diagnosis Comments POCT EKG Routine 09/30/2024 PAC (premature atrial contraction) from Last 3 Months Results * POCT EKG (09/30/2024) us Brittny Soni MD ECG ORDERABLES Final Res ult MANUALLY TRANSCRIBED RESULTS from Last 3 Months Insurance [employer] MEDIC[employer] ADVANTAGE Advance Directives * Full Code (Latest Code Status on File) Date Activated Date Inactivated Comments 03/07/2022 7:01 PM 03/11/2022 5:51 PM Care Teams Pension Consultant Relationship Specialty Start Date End Date Miranda Marquez MD [address] [place] [address] PCP - General Family Medicine 07/19/16
--- OUTSIDE RECORDS SUMMARY | 2024-10-20 11:48 | XMS_ITS | Encounter Summary ---
Author Organization [facility] Healthcare Address [address] [place] [address] Care Team Providers Care Boatbuilder Supervisor Name Role Phone Miranda Marquez MD Primary Care Provider [phone] Miranda Marquez MD Unavailable [phone] Jairo Awad LPN Unavailable [phone] Encounter Details Date Type Department Care Team (Latest Contact Info) Description 10/18/2024 Travel Social History Tobacco Use Types Packs/Day Years [...] Upcoming Encounters Date Type Department Care Team ( st Contact Info) Description 11/04/2024 1:30 PM EDT Procedure Visit [facility] [address] [place] [phone] Galen Pratt DPM [address] [place], [place] [phone] documented as of this encounter Visit Diagnoses Not on filedocumented in this encounter Additional Health Concerns Assessment Noted Time PHQ-9 Depression Total Score: 6 11/15/19 23 4:09 PM EDT documented as of this encounter Care Teams Boatbuilder Supervisor Relationship Specialty Start Date End Date Miranda Marquez MD [address] [place] [address] PCP - General Family Medicine 06/18/22 Miranda Marquez MD [address] [place] [address] PCP - Devoted 11/11/23 Jairo Awad, SARAH [address] [place] [id number] Licensed Practical Nurse Family Medicine 05/12/24 documented as of this encounter
--- OUTSIDE RECORDS SUMMARY | 2024-10-20 11:49 | XMS_ITS ---
Author Organization [facility] Healthcare Address [address] [place] [address] Care Team Providers Care Sewer Line Repairer Name Role Phone Miranda Marquez MD Primary Care Provider [phone] Miranda Marquez MD Unavailable [phone] Jairo Awad LPN Unavailable [phone] Chronic Care Management (CCM) Status:Enrolled (Active) Start date:01/16/2024 Enrollment date:01/16/2024 Overview Please assess for Care Management needs. Case Team Name Relationship Phone Jairo Awad LPN(Responsible Staff) Licensed Pr actical Nurse [phone] Continued Care and Services Coordination
--- OUTSIDE RECORDS SUMMARY | 2024-10-20 11:49 | XMS_ITS | Encounter Summary ---
Author Organization [facility] Address [facility] [place] [address] Care Team Providers Care Test Driver Name Role Phone Miranda Marquez MD Primary Care Provider [phone] Nelson Gruber Unavailable [phone] Matt Winters MD Unavailable Cristopher Bernstein MD Unavailable [phone] Source Comments In the event this information is protected by the Federal Confidentiality of Alcohol and Drug AbusePatient Records regulations: The Federal rules restrict any use of the information to criminally investigate or prosecute any alcohol or drug abuse patient.[facility] Encounter Details Date Type Department Care Team (Late st Contact Info) Description 05/12/2016 Abstract Radiation Oncology [address] [id number] Nelson Knight (Res)(Hist), [address] [place] [address] Social History Tobacco Use Types [...] on filedocumented in this encounter Care Teams Test Driver Relationship Specialty Start Date End Date Miranda Marquez MD [address] [place] [address] PCP - General Family Medicine 04/04/16 Nelson Gruber [address] [facility] [address] [place] [address] Referring Ophthalmology 04/04/16 [place] [address] [place] [address] Radiation Oncology 04/30/16 Cristopher Bernstein MD [address] [facility] [address] [place] [address] Referring Ophthalmology 03/23/24 documented as of this encounter
[2024-10-20] MEDS: CEFAZOLIN SODIUM 2 GM/50 ML D5W PREMIX IV (12:27)
[2024-10-20] MEDS: IOHEXOL 300 MG/ML - 50 ML BTL INJ (14:00)
--- NOTE | 2024-10-20 14:29 | PM.URSON ---
Urology Surgery Operative Note Operative Note Procedure Date: 10/20/24 Time Out Performed: yes Pre-op Diagnosis: 1. Bladder tumors Post-op Diagnosis: other (1. Bladder tumors, 2. Prostatic urethral tumor) Procedures performed: 1. Cystoscopy, bilateral retrograde pyelogram 2. Transurethral resection of bladder tumor (>5 cm) 3. Transurethral resection of prostatic urethral tumor Anesthesia: General-ET (Dr. 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 Moderate bilobar prostatomegaly, elevated bladder neck. Small stones within anterior prostatic urethra unroofed during resection. 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 Carpeting overlying right UO and right trigone. R UO lumen uninvolved. 5-10 mm right-mid inferior bladder tumor. -2x3 cm anterior inferior papillary tumor, just proximal to bladder neck -1-2+ trabeculated, thin bladder. -BL RPG without filling defects, hydronephrosis or extravasation. Full excretion of contrast BL. -FRANK smooth, flat, no firm nodules Specimens: 1. right lateral wall tumor 2. anterior bladder tumor 3. tumors overlying right ureteral orifice 4. right bladder neck 5. prostatic urethral tumors Drains: 22Fr 3way blair, 30 cc in balloon, inflow capped Indications for Procedures: 84 year old male with a history of gross hematuria who was found to have a 4x 3.6 x 2.8 cm right lateral wall bladder mass on CT AP wo contrast 07/28/24. Cystoscopy confirmed presence of large bladder tumor, along with several other papillary tumors. Unable to view right UO. Urine cytology suspicious. After discussion of risks/benefits of management options, patient elected to proceed with cystoscopy, TURBT, bilateral retrograde pyelogram, possible right ureteral stent placement under anesthesia. Of note, care was delayed due to patient cancelling surgery and declining to re-schedule despite multiple calls and attempts. After repeat discussions with patient's POA/son and eventually patient, he ultimately rescheduled and elected to proceed. Risks were discussed including but not limited to bleeding, pain, infection, damage to surrounding structures including bladder perforation, recurrence, stricture and need for additional procedures. Detailed description of Procedure: Prior to the operating room, informed consent was obtained for the procedures described above. The patient was then taken to the operating suite, transferred to the operating table and received the appropriate dose of preoperative IV antibiotics. General anesthesia ETT was administered and the patient was positioned in the lithotomy position, sterilely prepped and draped in the usual sterile fashion for this procedure. A final timeout was performed confirming the patient's identity, procedure and all present were in agreement to proceed. I began by inserting a 22 Palestinian rigid cystoscope into the patient's bladder and performed a thorough cystoscopy with both the 30 and 70 degree lens with the findings as above. Left ureteral orifice was seen in orthotopic position effluxing urine, right UO obscured by tumor. The cystoscope was removed and a 26 Palestinian continuous resectoscope was inserted. Bipolar loop electrocautery was used to fully resect all the tumors as above, taking care to obtain muscle in the specimen. The faint tumors overlying the right UO and trigone were carefully resected. Specimens were sent for pathology. Hemostasis of resection beds and their border was obtained with electrocautery, taking care to avoid the right UO. The bladder was drained and inspected. There was no evidence of any bleeding from the resection beds. The prostatic urethral tumors were resected and fulgurated. The previously seen papillary prostatic urethral tumor was no longer seen, likely knocked into the bladder upon scope entry. The anterior and right prostatic lobe where it appears it may have originated from was resected/faint tumors were noted. The bladder was irrigated multiple times until no debris remained. The resectoscope was removed and the cytoscope was reinserted. Attention was turned to the left UO and a 5Fr open ended catheter was inserted followed by dilute contrast for retrograde pyelogram, findings as above. Attention was turned to the resected right UO and retrograde pyelogram was performed. Both UOs were effluxing and contrast excreted on post drainage fluoroscopy. The cystoscope was removed. A 22-Palestinian [address] coude catheter was inserted without difficulty, 30 cc in balloon, irrigated until clear. FRANK was performed, findings as above. The bladder was mobile without palpable mass. The abdomen was soft and nondistended. The patient tolerated the procedure well without complication. Patient was extubated and sent to PACU for recovery. S Plan: Dc home. Follow-up in the office for blair removal and voiding trial in 1 week. Pathology review in 1-2 weeks once available. Findings and plan of care discussed with patient's and son. Urinary Catheter Management Urinary Catheter Management 3-way Urethral: Cath placed during this visit: no
--- NOTE | 2024-10-20 14:38 | PC.NURSE ---
blair catheter with pink tinged urine in the tube.
== END 2024-10-20 15:52 | disposition home or self-care (01) ==
LOC: SURGOUT 11:46
PROVIDERS: PCP Family Medicine; Visit Provider Urology
PROC: (CPT 52005; principal; 2024-10-20 13:00)
DX: C67.9 Malignant neoplasm of bladder, unspecified (principal); E78.5 Hyperlipidemia, unspecified; G89.29 Other chronic pain; H91.90 Unspecified hearing loss, unspecified ear; K21.9 Gastro-esophageal reflux disease without esophagitis; N40.0 Benign prostatic hyperplasia without lower urinary tract symptoms; E07.9 Disorder of thyroid, unspecified; M10.9 Gout, unspecified; D64.9 Anemia, unspecified
CPT/HCPCS: 52005; 52235; 36415; 74420; J0131; J0690; J1100; J1200; J2250; J2405; J2704; J3010; Q9967

== ENCOUNTER 2024-10-26 11:42 | Observation (INO) | payer OTHER, SELFPAY ==
--- OUTSIDE RECORDS SUMMARY | 2024-10-18 13:00 | XMS_ITS | Encounter Summary ---
Author Organization [facility] Address [address] [place] [address] Care Team Providers Care Water Service Supervisor Name Role Phone Miranda Marquez MD Primary Care Provider [phone] Miranda Marquez MD Unavailable [phone] AwadJairo LPN Unavailable [phone] Encounter Details Date Type Department Care Team (Late Contact Info) Description 10/18/2024 1:00 PM EDT Ancillary Procedure [facility] [address] [address] Social History Tobacco Use Types Packs/Day Years [...] Encounters Date Type Department Care Team (Late Contact Info) Description 11/04/2024 1:30 PM EDT Procedure Visit [facility] [address] [place] [phone] Galen Pratt DPM [address] [place], [place] [id number] documented as of this encounter Procedures Procedure Name Priority Date/Time Associated Diagnosis Comments PFT COMPLETE Routine 10/18/2024 1:33 PM EDT Subacute cough documented in this encounter Results * Pulmonary Function Test (10/18/2024 1:33 PM EDT) Anatomical Region Laterality Modality PFT Narrative 10/26/2024 1:03 PM EDT PFT Interpretation 84-year-old male referred by Anuel Palomino APRN for pulmonary function test with a diagnosis of shortness of breath and cough. He is a former smoker. The patient was unable to exhale for full 6 seconds bringing this testing not valid by ATS criteria. The results should be viewed with this in mind as they interpreted on face value. There is no evidence of obstructive changes. There was no significant response to bronchodilator therapy. There is no evidence of hyperinflation. There is evidence of air trapping given the discrepancy between single breath total lung capacity and body plethysmography. His diffusion capacity is diminished and does correct somewhat although not completely when adjusted for alveolar ventilation. Overall this set of pulmonary function test does not demonstrate any evidence of obstructive ventilatory defect. There is evidence of mild restrictive ventilatory defect. His diffusion capacity is diminished and does correct somewhat when adjusted for alveolar ventilation. Clinical correlation is recommended. Again the patient was not able to exhale for full 6 seconds making this portion of the testing not valid by ATS criteria. The results should be viewed with this in mind. Rachel Palomino PERSONAL PROTECTION SPECIALIST IMG XR PROCEDURES Final Result documented in this encounter Visit Diagnoses Not on filedocumented in this encounter Additional Health Concerns Assessment Noted Time PHQ-9 Depression Total Score: 6 11/15/19 23 4:09 PM EDT documented as of this encounter Care Teams Water Service Supervisor Relationship Specialty Start Date End Date Miranda Marquez MD [address] [facility] [place] [address] PCP - General Family Medicine 06/18/22 Miranda Marquez MD [address] [facility] [place] [address] PCP - Devoted 11/11/23 Jairo Awad, SARAH [address] [place] [address] Licensed Practical Nurse Family Medicine 05/12/24 documented as of this encounter
[2024-10-26 11:47] VITALS: BP 151/75; PULSE 70; TEMP 36.8; O2SAT 97; BMI 20.4
[2024-10-26 12:29] LABS: Hematocrit 29.7 % (42.0-54.0); Hemoglobin 10.1 g/dL (14.0-18.0); Immature Granulocytes Abs Auto 0.02 10^3/uL (0.00-0.03); Immature Granulocytes Pct Auto 0.3 % (0.0-0.5); Lymphocytes Absolute Auto 0.9 10^3/uL (1.2-3.8); Mean Corpuscular HGB Conc 34.0 g/dL (29.9-35.2); Mean Corpuscular Hemoglobin 30.0 pg (25.9-34.0); Mean Corpuscular Volume 88.1 fL (80.0-94.0); Platelet Count 186 10^3/uL (150-450); Red Blood Count 3.37 10^6/uL (4.70-6.10); White Blood Count 6.8 10^3/uL (4.0-11.0)
[2024-10-26 12:44] LABS: Alanine Aminotransferase 23 U/L (16-63); Albumin Globulin Ratio 0.8; Albumin Level 3.1 g/dL (3.4-5.0); Alkaline Phosphatase 88 U/L (46-116); Anion Gap 10.7; Aspartate Amino Transferase 20 U/L (15-37); Blood Urea Nitrogen 17.0 mg/dL (7.0-18.0); Calcium 8.5 mg/dL (8.5-10.1); Carbon Dioxide 26.4 mmol/L (21.0-32.0); Chloride 103 mmol/L (98-107); Estimated GFR (African America >60 (>=60 mL/min/1.73m^2); Estimated GFR (Non-African Ame >60 (>=60 mL/min/1.73m^2); Globulin 4.0 g/dL; Glucose 118 mg/dL (74-106); Potassium 4.1 mmol/L (3.5-5.1); Sodium 136 mmol/L (136-145); Total Protein 7.1 g/dL (6.4-8.2)
[2024-10-26 12:47] LABS: Lactate/Lactic Acid 1.1 mmol/L (0.4-2.0)
[2024-10-26] MEDS: SODIUM CHLORIDE IRRIG SOLUTION 3,000 ML 3000 ML IRR ×12 (13:35→23:33)
--- NOTE | 2024-10-26 13:47 | ED.MALEGU1 ---
HPI - Male Genitourinary General Chief complaint: Urogenital-Male Stated complaint: CATHETER ISSUE Time Seen by Provider: 10/26/24 11:54 Source: patient Mode of arrival: walk-in Limitations: no limitations History of Present Illness HPI Narrative: Patient had a TURP 10/[address] Pradhan, the patient presenting for 2 main concern the fact that he still have hematuria and blood coming from his urinary catheter in addition to swelling in the tip of the penis too The patient denies any significant pain, he does have some cramping in his suprapubic area every now and then No complaints otherwise no nausea no vomiting and the patient had a good appetite Patient was holding his Xarelto the first 3 days and he started taking it for 2 days ago. He did not take this morning dose Related Data Home Medications ?Medication ?Instructions ?Recorded ?Confirmed albuterol sulfate 90 mcg/actuation 2 inh inhalation Q4H PRN shortness 08/19/24 10/26/24 aerosol inhaler of breath or wheezing atorvastatin 80 mg tablet 80 mg PO DAILY 08/19/24 10/26/24 cholecalciferol (vitamin D3) 50 2,000 unit PO DAILY 08/19/24 10/26/24 mcg (2,000 unit) capsule finasteride 5 mg tablet 5 mg PO DAILY 08/19/24 10/26/24 levothyroxine 88 mcg tablet 88 mcg PO DAILY 08/19/24 10/26/24 magnesium glycinate 100 mg (as 100 mg PO DAILY 08/19/24 10/26/24 glycinate) tablet mecobalamin (vitamin B12) 2,500 2,500 mcg PO DAILY 08/19/24 10/26/24 mcg chewable tablet omeprazole 20 mg capsule,delayed 20 mg PO DAILY 08/19/24 10/26/24 release potassium 99 mg tablet 99 mg PO DAILY 08/19/24 10/26/24 rivaroxaban 20 mg tablet (Xarelto) 20 mg PO Q24H 08/19/24 10/26/24 terbinafine HCl 250 mg tablet 250 mg PO DAILY 08/19/24 10/26/24 trazodone 150 mg tablet 150 mg PO QPM 08/19/24 10/26/24 vitamin A-vitamin C-vit E-min 1 tab PO DAILY 08/19/24 10/26/24 tablet (Vision tablet) vitamin K2 100 mcg capsule 100 mcg PO DAILY 08/19/24 10/26/24 Previous Rx's ?Medication ?Instructions ?Recorded oxybutynin chloride 5 mg tablet 5 mg PO Q8H PRN bladder spasms #60 10/20/24 tabs Allergies Allergy/AdvReac Type Severity Reaction Status Date / Time Iodinated Contrast Media Allergy Unknown Verified 10/26/24 11:51 Review of Systems ROS Status of ROS 10 or more systems reviewed and unremarkable except as noted in history and below [facility] Medical History (Updated 10/26/24 @ 15:26 by Selam Reyes MD) History of blood transfusion ?Z92.89 - Personal history of other medical treatment (ICD-10) H/O reduction of closed fracture ?Z87.81 - Personal history of (healed) traumatic fracture (ICD-10) Leg fracture ?S82.90XA - Unspecified fracture of unspecified lower leg, initial encounter for closed fracture (ICD-10) BPH with obstruction/lower urinary tract symptoms ?N40.1 - Benign prostatic hyperplasia with lower urinary tract symptoms (ICD-10) ?N13.8 - Other obstructive and reflux uropathy (ICD-10) Anticoagulated ?Z79.01 - custodial (current) use of anticoagulants (ICD-10) Bleeding ulcer ?K28.4 - Chronic or unspecified gastrojejunal ulcer with hemorrhage (ICD-10) Shoulder pain ?M25.519 - Pain in unspecified shoulder (ICD-10) Cataract ?H26.9 - Unspecified cataract (ICD-10) 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 ?C69.32 - Malignant neoplasm of left choroid (ICD-10) Pulmonary embolism (~2022) ?I26.99 - Other pulmonary embolism without acute cor pulmonale (ICD-10) Abnormal EKG ?R94.31 - Abnormal electrocardiogram [ECG] [EKG] (ICD-10) Vitamin D deficiency ?E55.9 - Vitamin D deficiency, unspecified (ICD-10) Low hematocrit ?D64.9 - Anemia, unspecified (ICD-10) Chronic pain ?G89.29 - Other chronic pain (ICD-10) Hyperlipidemia ?E78.5 - Hyperlipidemia, unspecified (ICD-10) Gout ?M10.9 - Gout, unspecified (ICD-10) GERD (gastroesophageal reflux disease) ?K21.9 - Gastro-esophageal reflux disease without esophagitis (ICD-10) Elevated antinuclear antibody (VESNA) level ?R76.8 - Other specified abnormal immunological findings in serum (ICD-10) Atypical chest pain ?R07.89 - Other chest pain (ICD-10) Age-related cognitive decline ?R41.81 - Age-related cognitive decline (ICD-10) Hypothyroidism (acquired) ?E03.9 - Hypothyroidism, unspecified (ICD-10) Abnormal chest x-ray ?R93.89 - Abnormal findings on diagnostic imaging of other specified body structures (ICD-10) Hematuria ?R31.9 - Hematuria, unspecified (ICD-10) Hearing loss ?H91.90 - Unspecified hearing loss, unspecified ear (ICD-10) 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 - Neoplasm of unspecified behavior of bladder (ICD-10) Surgical History (Updated 08/19/24 @ 14:06 by Debbi Rowan NP) History of esophagogastroduodenoscopy (EGD) ?Z98.890 - Other specified postprocedural states (ICD-10) H/O cystoscopy ?Z98.890 - Other specified postprocedural states (ICD-10) H/O eye surgery ?Z98.890 - Other specified postprocedural states (ICD-10) Family History (Updated 08/19/24 @ 14:09 by Debbi Rowan NP) Other Family history of hypertension Social History (Updated 08/19/24 @ 14:05 by Debbi Rowan NP) Within the past year, how often did you have a drink containing alcohol: never Score interpretation: A score less than 4 is consistent with normal alcohol consumption. Smoking status: Former smoker Non-prescribed substance use: denies use Highest level of school completed/degree received: high school graduate Little interest or pleasure in doing things: not at all Feeling down, depressed, or hopeless: not at all Exam Narrative Exam Narrative: Nurses notes and vital signs reviewed and patient is not hypoxic. General: Well-appearing and in no apparent distress. Skin: Warm, dry, no pallor noted. No rash. Head: Normocephalic, atraumatic. Neck: Supple, non-tender. Cardiovascular: Regular Rate and Rhythm without murmur, gallop or rub. Respiratory: No accessory muscle use or respiratory distress. Lungs are clear to auscultation, no wheezing, rales or rhonchi Chest Wall: no tenderness Back: No midline thoracic or lumbar vertebral tenderness. No CVA tenderness Musculoskeletal: normal ROM, no calf or popliteal tenderness, no lower extremity edema/swelling GI: Abdomen is soft, non-distended. Normal bowel sounds. Penile exam was done while the patient nurse was at the bedside: The patient have swelling in the tip of the penis as well as the surrounding area mostly inflammation no infection no hotness no signs of discharge or any active bleeding at the area,the pt is circumcised No masses appreciated. No tenderness to palpation. No rebound, guarding, or rigidity noted. Neurological: A&O x4. No cranial nerve dysfunction observed. No truncal ataxia. Moves all extremities. Sensation intact. Psychiatric: Cooperative and interactive. Normal mood and affect. Constitutional Vital Signs, click to edit/add: Last Vital Signs Temp 98.3 F 10/26/24 11:47 Pulse 70 10/26/24 11:47 Resp 10/26/24 11:47 BP 151/75 H 10/26/24 11:47 Pulse Ox 97 10/26/24 11:47 O2 Del Method Room Air 10/26/24 11:47 Course Vital Signs Vital signs: Vital Signs Temperature 98.3 F 10/26/24 11:47 Pulse Rate 70 10/26/24 11:47 Respiratory Rate 10/26/24 11:47 Blood Pressure 151/75 H 10/26/24 11:47 Pulse Oximetry 97 10/26/24 11:47 Oxygen Delivery Method Room Air 10/26/24 11:47 Temperature 98.3 F 10/26/24 11:47 Pulse Rate 70 10/26/24 11:47 Respiratory Rate 10/26/24 11:47 Blood Pressure 151/75 H 10/26/24 11:47 Pulse Oximetry 97 10/26/24 11:47 Oxygen Delivery Method Room Air 10/26/24 11:47 MDM - Male Genitourinary MDM Narrative Medical decision making narrative: The patient CBC and chemistry showed no acute pathology The patient case initially discussed with Dr Pradhan team and the patient was planned to have irrigation in the ER in case of no resolution of the hematuria the patient will be admitted After 3 L irrigation in the ER the patient still have hematuria Patient to hold his Xarelto for the next 3 days in addition to continue irrigation at inpatient with continuous bladder irrigation The patient also to have clotrimazole antifungal cream to be applied twice a day to the penile area for treatment of balanitis The patient case was discussed with and he agreed with above-mentioned plan As per the urologist the patient will be seen and evaluated inpatient Dr. Pradhan informed of the patient admission It was noted that the initial irrigation was a manual irrigation with pressure but that did not show any blood clot initially or any blockage, patient had no suprapubic pain at any time and the urine was going through the catheter all the time with no blockage, the patient main concern with that he still have blood in the urine Lab Data Labs: Lab Results 10/26/24 Range/Units 12:13 WBC 6.8 (4.0-11.0) 10^3/uL RBC 3.37 L (4.70-6.10) 10^6/uL Hgb 10.1 L (14.0-18.0) g/dL Hct 29.7 L (42.0-54.0) % MCV 88.1 (80.0-94.0) fL MCH 30.0 (25.9-34.0) pg MCHC 34.0 (29.9-35.2) g/dL RDW 13.6 (11.0-15.0) % Plt Count 186 (150-450) 10^3/uL MPV 10.5 (9.5-13.5) fL Neut % (Auto) 79.6 H (43.0-75.0) % Lymph % (Auto) 12.9 L (20.5-60.0) % [place] % (Auto) 6.1 (1.7-12.0) % Eos % (Auto) 0.7 L (0.9-7.0) % Baso % (Auto) 0.4 (0.2-2.0) % Neut # (Auto) 5.4 (1.4-6.5) 10^3/uL Lymph # (Auto) 0.9 L (1.2-3.8) 10^3/uL [place] # (Auto) 0.4 (0.3-0.8) 10^3/uL Eos # (Auto) 0.1 (0.0-0.7) 10^3/uL Baso # (Auto) 0.0 (0.0-0.1) 10^3/uL Abs Immat Gran (auto) 0.02 (0.00-0.03) 10^3/uL Imm/Tot Granulo (auto) 0.3 (0.0-0.5) % Sodium 136 (136-145) mmol/L Potassium 4.1 (3.5-5.1) mmol/L Chloride 103 (98-107) mmol/L Carbon Dioxide 26.4 (21.0-32.0) mmol/L Anion Gap 10.7 BUN 17.0 (7.0-18.0) mg/dL Creatinine 1.05 (0.70-1.30) mg/dL Est GFR ( Amer) >60 (>=60 mL/min/1.73m^2) Est GFR (Non-Af Amer) >60 (>=60 mL/min/1.73m^2) BUN/Creatinine Ratio 16.2 Glucose 118 H (74-106) mg/dL Lactate 1.1 (0.4-2.0) mmol/L Calcium 8.5 (8.5-10.1) mg/dL Total Bilirubin 0.6 (0.2-1.0) mg/dL AST 20 (15-37) U/L ALT 23 (16-63) U/L Alkaline Phosphatase 88 (46-116) U/L Total Protein 7.1 (6.4-8.2) g/dL Albumin 3.1 L (3.4-5.0) g/dL Globulin 4.0 g/dL Albumin/Globulin Ratio 0.8 Discharge Plan Discharge Chief Complaint: Urogenital-Male Clinical Impression: Hematuria, Balanitis Patient Disposition: Admitted As Inpatient Time of Disposition Decision: 15:26
[2024-10-26] MEDS: DICYCLOMINE HCL 20 MG/2 ML VIAL 10 MG IM (14:25)
[2024-10-26 16:06] VITALS: BP 114/60; PULSE 58; O2SAT 98
[2024-10-26 16:27] VITALS: BMI 19.2
[2024-10-26 16:29] VITALS: BP 159/68; PULSE 64; TEMP 36.7; O2SAT 95
--- NOTE | 2024-10-26 16:52 | PM.HP ---
HPI H&P: HPI History of Present Illness Chief complaint: CATHETER ISSUE, HEMATURIA Narrative: Mr. Fischer is an 84-year-old gentleman who came in with a gross hematuria. Patient has had hematuria for a while. 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 He underwent on 10/20 transurethral resection of the bladder tumor. Transurethral resection of prostate tumor by Dr. Pradhan. Patient resume taking Xarelto that he takes for pulmonary embolism. He started bleeding again so he should go back to the emergency room. No abdominal pain. No chest pain. No fever or chills. Patient takes Xarelto for the last 3 years. He had a blood clot done and has been on Xarelto since. Opioid HPI Opioid Management Most Recent Pain and Opioid Data: Last Pain Scale 8 Today, 12:03 Last Pain Assessment 10/20/24, 12:17 Last ORT Total Score 0 Today, 16:27 Last ORT Risk Category Low Risk Today, 16:27 Review of Systems ROS Status of ROS 10 or more systems reviewed and unremarkable except as noted in history and below [facility] Medical History (Updated 10/26/24 @ 16:56 by Claudette Nieto MD) History of blood transfusion ?Z92.89 - Personal history of other medical treatment (ICD-10) H/O reduction of closed fracture ?Z87.81 - Personal history of (healed) traumatic fracture (ICD-10) Leg fracture ?S82.90XA - Unspecified fracture of unspecified lower leg, initial encounter for closed fracture (ICD-10) BPH with obstruction/lower urinary tract symptoms ?N40.1 - Benign prostatic hyperplasia with lower urinary tract symptoms (ICD-10) ?N13.8 - Other obstructive and reflux uropathy (ICD-10) Anticoagulated ?Z79.01 - group home (current) use of anticoagulants (ICD-10) Bleeding ulcer ?K28.4 - Chronic or unspecified gastrojejunal ulcer with hemorrhage (ICD-10) Shoulder pain ?M25.519 - Pain in unspecified shoulder (ICD-10) Cataract ?H26.9 - Unspecified cataract (ICD-10) 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 ?C69.32 - Malignant neoplasm of left choroid (ICD-10) Pulmonary embolism (~2022) ?I26.99 - Other pulmonary embolism without acute cor pulmonale (ICD-10) Abnormal EKG ?R94.31 - Abnormal electrocardiogram [ECG] [EKG] (ICD-10) Vitamin D deficiency ?E55.9 - Vitamin D deficiency, unspecified (ICD-10) Low hematocrit ?D64.9 - Anemia, unspecified (ICD-10) Chronic pain ?G89.29 - Other chronic pain (ICD-10) Hyperlipidemia ?E78.5 - Hyperlipidemia, unspecified (ICD-10) Gout ?M10.9 - Gout, unspecified (ICD-10) GERD (gastroesophageal reflux disease) ?K21.9 - Gastro-esophageal reflux disease without esophagitis (ICD-10) Elevated antinuclear antibody (VESNA) level ?R76.8 - Other specified abnormal immunological findings in serum (ICD-10) Atypical chest pain ?R07.89 - Other chest pain (ICD-10) Age-related cognitive decline ?R41.81 - Age-related cognitive decline (ICD-10) Abnormal chest x-ray ?R93.89 - Abnormal findings on diagnostic imaging of other specified body structures (ICD-10) Hematuria ?R31.9 - Hematuria, unspecified (ICD-10) Hearing loss ?H91.90 - Unspecified hearing loss, unspecified ear (ICD-10) Surgical History (Updated 08/19/24 @ 14:06 by Debbi Rowan NP) History of esophagogastroduodenoscopy (EGD) ?Z98.890 - Other specified postprocedural states (ICD-10) H/O cystoscopy ?Z98.890 - Other specified postprocedural states (ICD-10) H/O eye surgery ?Z98.890 - Other specified postprocedural states (ICD-10) Family History (Updated 08/19/24 @ 14:09 by Debbi Rowan NP) Other Family history of hypertension Social History (Updated 08/19/24 @ 14:05 by Debbi Rowan NP) Within the past year, how often did you have a drink containing alcohol: never Score interpretation: A score less than 4 is consistent with normal alcohol consumption. Smoking status: Former smoker Non-prescribed substance use: denies use Highest level of school completed/degree received: some college, no degree Little interest or pleasure in doing things: not at all Feeling down, depressed, or hopeless: not at all Meds Home Medications and Allergies Home Medications ?Medication ?Instructions ?Recorded ?Confirmed ?Type albuterol sulfate 90 mcg/actuation 2 inh inhalation Q4H PRN shortness 08/19/24 10/26/24 History aerosol inhaler of breath or wheezing atorvastatin 80 mg tablet 80 mg PO DAILY 08/19/24 10/26/24 History cholecalciferol (vitamin D3) 50 2,000 unit PO DAILY 08/19/24 10/26/24 History mcg (2,000 unit) capsule finasteride 5 mg tablet 5 mg PO DAILY 08/19/24 10/26/24 History levothyroxine 88 mcg tablet 88 mcg PO DAILY 08/19/24 10/26/24 History magnesium glycinate 100 mg (as 100 mg PO DAILY 08/19/24 10/26/24 History glycinate) tablet mecobalamin (vitamin B12) 2,500 2,500 mcg PO DAILY 08/19/24 10/26/24 History mcg chewable tablet omeprazole 20 mg capsule,delayed 20 mg PO DAILY 08/19/24 10/26/24 History release potassium 99 mg tablet 99 mg PO DAILY 08/19/24 10/26/24 History rivaroxaban 20 mg tablet (Xarelto) 20 mg PO Q24H 08/19/24 10/26/24 History terbinafine HCl 250 mg tablet 250 mg PO DAILY 08/19/24 10/26/24 History trazodone 150 mg tablet 150 mg PO QPM 08/19/24 10/26/24 History vitamin A-vitamin C-vit E-min 1 tab PO DAILY 08/19/24 10/26/24 History tablet (Vision tablet) vitamin K2 100 mcg capsule 100 mcg PO DAILY 08/19/24 10/26/24 History oxybutynin chloride 5 mg tablet 5 mg PO Q8H PRN bladder spasms #60 10/20/24 10/26/24 Rx tabs Allergies Allergy/AdvReac Type Severity Reaction Status Date / Time Iodinated Contrast Media Allergy Unknown Verified 10/26/24 11:51 Exam Narrative Exam Narrative: [pt is awake and alert. oriented to place, time and person, cachectic and frail in appearance. HEENT: [place] conjunctiva and NL buccal mucosa bitemporal muscle wasting. Neck: Supple, no tenderness Endocrine: No Thyromegaly. Vascular: No JVD or carotid bruit. Lymphatic: No cervical lymphadenopathy. Chest: CTA no DTP. Heart RRR, no extra sound or murmur. Abd: Soft, no tenderness, no rebound and no rigidity. Increase abd girth therefore clinically I could not exclude the possibility of intra abd mass or organomegaly. LE: No cyanosis or clubbing, no varices or edema. Upper and lower extremities muscle wasting atrophy Cole catheter is in. Some swelling of the penile shaft. Gross hematuria noted in the irrigation bag. Neuro: A A O. Nl speech, comprehension and attention. Nl and symetrical motor and tone examination through out. []] Constitutional Vital Signs, click to edit/add: Last Vital Signs Temp 98.0 F 10/26/24 16:29 Pulse 64 10/26/24 16:29 Resp 18 10/26/24 16:29 BP 159/68 H 10/26/24 16:29 Pulse Ox 95 10/26/24 16:29 O2 Del Method Room Air 10/26/24 16:29 Results Labs Labs: Short CBC 10/26/24 Range/Units 12:13 WBC 6.8 (4.0-11.0) 10^3/uL Hgb 10.1 L (14.0-18.0) g/dL Hct 29.7 L (42.0-54.0) % Plt Count 186 (150-450) 10^3/uL BMP 10/26/24 12:13 Sodium 136 Potassium 4.1 Chloride 103 Carbon Dioxide 26.4 BUN 17.0 Creatinine 1.05 Glucose 118 H Calcium 8.5 Liver Function 10/26/24 Range/Units 12:13 Total Bilirubin 0.6 (0.2-1.0) mg/dL AST 20 (15-37) U/L ALT 23 (16-63) U/L Alkaline Phosphatase 88 (46-116) U/L Albumin 3.1 L (3.4-5.0) g/dL Assessment and Plan Assessment and Plan (1) Hematuria: (2) Prostate tumor: (3) Bladder neoplasm: (4) Cachexia: (5) Frailty: (6) Muscle wasting: (7) Anemia: Plan Gross hematuria after bladder and prostate tumor resection completed on 10/[address] Pradhan in the setting of patient taking Xarelto. Acute blood loss anemia. Baseline hemoglobin in August was 13 and outs 10. I had accepted to admit the patient to the medical floor. I started the bladder irrigation. Requested UA to rule out UTI. Consulted urology to proceed with additional recommendation as deemed to be appropriate Hold the Xarelto Start patient on iron supplementation. History of PE in 2021. Patient has been on Xarelto since time. Patient denied any history of 2nd or 3rd PE. I do not know the circumstances surrounding his pulmonary embolism but not sure if patient would qualify for long-term anticoagulation after 1 episode of PE Hold Xarelto for now until is gross hematuria resolved completely Try to gather some information surrounding his PSA from his PCP. Cachexia, frailty, muscle wasting, moderate protein calorie malnutrition. I started the patient on Ensure twice a day. Recommend weight loss and age-appropriate cancer screening to be handled by PCP in the outpatient setting Patient may need to have a metastatic workup given his prostate and bladder CA to be handled by urology in collaboration with the PCP. Hypothyroidism Resume Synthroid Chronic medical conditions not listed above, incidental findings seen on labs and imaging. These would need to be addressed. Could be addressed when time and condition are appropriate. Could be addressed in the outpatient setting by PCP collaboration with other needed outpatient providers. Goals of care discussion, advance care planning Spent about 60 minutes discussing this with the patient and his at the bedside. I explained in simple terms the process of CPR including chest compressions, shocks, intubation and life support. I answered all his questions related to that. Patient seems to request to have all needed medical care including aggressive medical care He has 4 children and the multiple grandchildren His wishes are consistent with a full CODE STATUS. Urinary Catheter Management Urinary Catheter Management 3-way Urethral: Cath placed during this visit: no
--- NOTE | 2024-10-26 17:01 | PC.NURSE ---
Dr. Nieto aware that patient has not had a BM in 6 days
[2024-10-26] MEDS: MAGNESIUM HYDROXIDE 2,400 MG/10 ML ORAL.SUSP 2400 MG PO (17:13)
--- NOTE | 2024-10-26 18:32 | PC.NURSE ---
RN manually irrigated patient and got out mod amount of small clots
[2024-10-26 19:37] VITALS: BP 116/53; PULSE 58; TEMP 36.6; O2SAT 95
[2024-10-26] MEDS: FERROUS SULFATE 325 MG TABLET PO (20:31)
[2024-10-26 21:59] LABS: Hematocrit 28.9 % (42.0-54.0); Hemoglobin 9.6 g/dL (14.0-18.0)
[2024-10-26 23:39] VITALS: BP 103/50; PULSE 66; TEMP 36.4; O2SAT 94
[2024-10-27] MEDS: SODIUM CHLORIDE IRRIG SOLUTION 3,000 ML 3000 ML IRR ×15 (00:16→12:56)
[2024-10-27 03:31] VITALS: BP 110/59; PULSE 54; TEMP 36.6; O2SAT 96
[2024-10-27] MEDS: PANTOPRAZOLE SODIUM 40 MG TABLET.DR PO (05:45)
[2024-10-27 06:22] LABS: Hematocrit 30.7 % (42.0-54.0); Hemoglobin 10.2 g/dL (14.0-18.0); Immature Granulocytes Abs Auto 0.01 10^3/uL (0.00-0.03); Immature Granulocytes Pct Auto 0.2 % (0.0-0.5); Lymphocytes Absolute Auto 1.7 10^3/uL (1.2-3.8); Mean Corpuscular HGB Conc 33.2 g/dL (29.9-35.2); Mean Corpuscular Hemoglobin 29.4 pg (25.9-34.0); Mean Corpuscular Volume 88.5 fL (80.0-94.0); Platelet Count 183 10^3/uL (150-450); Red Blood Count 3.47 10^6/uL (4.70-6.10); White Blood Count 5.7 10^3/uL (4.0-11.0)
[2024-10-27 06:36] LABS: Anion Gap 9.9; Blood Urea Nitrogen 15.0 mg/dL (7.0-18.0); Calcium 8.5 mg/dL (8.5-10.1); Carbon Dioxide 28.4 mmol/L (21.0-32.0); Chloride 105 mmol/L (98-107); Estimated GFR (African America >60 (>=60 mL/min/1.73m^2); Estimated GFR (Non-African Ame >60 (>=60 mL/min/1.73m^2); Glucose 102 mg/dL (74-106); Magnesium 2.2 mg/dL (1.8-2.4); Potassium 4.3 mmol/L (3.5-5.1); Sodium 139 mmol/L (136-145)
[2024-10-27 07:39] VITALS: BP 116/56; PULSE 64; TEMP 36.5; O2SAT 97
[2024-10-27] MEDS: FINASTERIDE 5 MG TABLET PO (08:32)
[2024-10-27] MEDS: SENNOSIDES/DOCUSATE SODIUM 1 TAB TABLET PO (08:32)
[2024-10-27] MEDS: FERROUS SULFATE 325 MG TABLET PO ×2 (08:32→22:06)
[2024-10-27] MEDS: ATORVASTATIN CALCIUM 40 MG TABLET 80 MG PO (08:32)
[2024-10-27] MEDS: LEVOTHYROXINE SODIUM 88 MCG TABLET PO (08:32)
--- NOTE | 2024-10-27 08:42 | PM.PN ---
Progress Note: Subjective Subjective Interval history: Uneventful night. Patient is constipated. No bowel movement for a week. No abdominal pain. No nausea or vomiting. Resolution of his hematuria on irrigation. Exam Narrative Exam Narrative: [pt is awake and alert. oriented to place, time and person, cachectic and frail in appearance. HEENT: [place] conjunctiva and NL buccal mucosa bitemporal muscle wasting. Neck: Supple, no tenderness Endocrine: No Thyromegaly. Vascular: No JVD or carotid bruit. Lymphatic: No cervical lymphadenopathy. Chest: CTA no DTP. Heart RRR, no extra sound or murmur. Abd: Soft, no tenderness, no rebound and no rigidity. Increase abd girth therefore clinically I could not exclude the possibility of intra abd mass or organomegaly. LE: No cyanosis or clubbing, no varices or edema. Upper and lower extremities muscle wasting atrophy Cole catheter is in. Some swelling of the penile shaft. Gross hematuria had resolved noted in the irrigation bag. Neuro: A A O. Nl speech, comprehension and attention. Nl and symetrical motor and tone examination through out. []] Constitutional Vital Signs, click to edit/add: Last Vital Signs Temp 97.7 F 10/27/24 07:39 Pulse 64 10/27/24 07:39 Resp 16 10/27/24 07:39 BP 116/56 10/27/24 07:39 Pulse Ox 97 10/27/24 07:39 O2 Del Method Room Air 10/27/24 07:39 Progress Note: Objective Labs Labs: Short CBC 10/26/24 10/26/24 10/27/24 Range/Units 12:13 21:37 06:10 WBC 6.8 5.7 (4.0-11.0) 10^3/uL Hgb 10.1 L 9.6 L 10.2 L (14.0-18.0) g/dL Hct 29.7 L 28.9 L 30.7 L (42.0-54.0) % Plt Count 186 183 (150-450) 10^3/uL BMP 10/26/24 10/27/24 12:13 06:10 Sodium 136 139 Potassium 4.1 4.3 Chloride 103 105 Carbon Dioxide 26.4 28.4 BUN 17.0 15.0 Creatinine 1.05 0.95 Glucose 118 H 102 Calcium 8.5 8.5 Liver Function 10/26/24 Range/Units 12:13 Total Bilirubin 0.6 (0.2-1.0) mg/dL AST 20 (15-37) U/L ALT 23 (16-63) U/L Alkaline Phosphatase 88 (46-116) U/L Albumin 3.1 L (3.4-5.0) g/dL Progress Note: A&P Assessment and Plan (1) Hematuria: (2) Prostate tumor: (3) Bladder neoplasm: (4) Cachexia: (5) Frailty: (6) Muscle wasting: (7) Anemia: Plan Gross hematuria after bladder and prostate tumor resection completed on 10/[address] Pradhan in the setting of patient taking Xarelto. Acute blood loss anemia secondary to anticoagulation. Baseline hemoglobin in August was 13 and outs 10. I had accepted to admit the patient to the medical floor. I started the bladder irrigation. Hematuria had resolved overnight. Requested UA to rule out UTI. Pending Consulted urology to proceed with additional recommendation as deemed to be appropriate Hold the Xarelto Started patient on iron supplementation. History of PE in 2021. Patient has been on Xarelto since time. Patient denied any history of 2nd or 3rd PE. I do not know the circumstances surrounding his pulmonary embolism but not sure if patient would qualify for long-term anticoagulation after 1 episode of PE Hold Xarelto for now until is gross hematuria resolved completely Try to gather some information surrounding his PSA from his PCP. We will communicate with his PCP today Constipation, probable ileus I start patient on Senokot, Colace, Dulcolax and magnesium citrate. Additional intervention may be needed if no resolution Cachexia, frailty, muscle wasting, moderate protein calorie malnutrition. I started the patient on Ensure twice a day. Recommend weight loss and age-appropriate cancer screening to be handled by PCP in the outpatient setting Patient may need to have a metastatic workup given his prostate and bladder CA to be handled by urology in collaboration with the PCP. Hypothyroidism Resume Synthroid Chronic medical conditions not listed above, incidental findings seen on labs and imaging. These would need to be addressed. Could be addressed when time and condition are appropriate. Could be addressed in the outpatient setting by PCP collaboration with other needed outpatient providers. Goals of care discussion, advance care planning completed on 10/26 Spent about 60 minutes discussing this with the patient and his at the bedside. I explained in simple terms the process of CPR including chest compressions, shocks, intubation and life support. I answered all his questions related to that. Patient seems to request to have all needed medical care including aggressive medical care He has 4 children and the multiple grandchildren His wishes are consistent with a full CODE STATUS. Urinary Catheter Management Urinary Catheter Management 3-way Urethral: Cath placed during this visit: no
[2024-10-27] MEDS: MAGNESIUM CITRATE 296 ML SOLUTION PO (09:00)
[2024-10-27] MEDS: ENSURE HP 237 ML LIQUID PO ×2 (09:04→13:35)
--- NOTE | 2024-10-27 09:05 | CM.NOTE ---
Rounds made with Dr. Cespedes, discussed with pt plan of care. Dr. Pradhan will consult on pt today for further recommendations. Pt is OBS status, clarified with Dr. Nieto.
[2024-10-27 11:44] VITALS: BP 126/67; PULSE 59; TEMP 36.6; O2SAT 98
--- OUTSIDE RECORDS SUMMARY | 2024-10-27 13:27 | XMS_ITS | Encounter Summary ---
Author Organization [facility] Address [address] [place] [address] Care Team Providers Care Cutter Grinder Name Role Phone Miranda Marquez MD Primary Care Provider [phone] Miranda Marquez MD Unavailable [phone] Jairo Awad LPN Unavailable [phone] Encounter Details Date Type Department Care [...] EDT Procedure Visit [facility] [address] [place] [id number] Galen Pratt DPM [address] [place], [place] [id number] documented as of this encounter Visit Diagnoses Not on filedocumented in this encounter Additional Health Concerns Assessment Noted Time PHQ-9 Depression Total Score: 6 11/15/19 23 4:09 PM EDT documented as of this encounter Care Teams Cutter Grinder Relationship Specialty Start Date End Date Miranda Marquez MD [address] [place] [address] PCP - General Family Medicine 06/18/22 Miranda Marquez MD [address] [place] [address] PCP - Devoted 11/11/23 Jairo Awad, SARAH [address] [place] [phone] Licensed Practical Nurse Family Medicine 05/12/24 documented as of this encounter
--- OUTSIDE RECORDS SUMMARY | 2024-10-27 13:27 | XMS_ITS ---
Author Organization [facility] Address [address] [place] [address] Care Team Providers Care Percussion Instrument Repairer Name Role Phone Miranda Marquez MD Primary Care Provider [phone] Miranda Marquez MD Unavailable [phone] Jairo Awad LPN Unavailable [phone] Chronic Care Management (CCM) Status:Enrolled (Active) Start date:01/16/2024 Enrollment date:01/16/2024 Overview Please assess for Care Management needs. Case Team Name Relationship Phone Jairo Awad LPN(Responsible Staff) Licensed Pr actical Nurse [phone] Continued Care and Services Coordination
--- OUTSIDE RECORDS SUMMARY | 2024-10-27 13:27 | XMS_ITS | Encounter Summary ---
Author Organization [facility] Healthcare Address [address] [place] [address] Care Team Providers Care Brand Attendant Name Role Phone Miranda Marquez MD Primary Care Provider [phone] Miranda Marquez MD Unavailable [phone] Miranda Tamayo RN Unavailable [phone] Miranda Marquez MD Unavailable [phone] Jairo Awad LPN Unavailable [phone] Encounter Details Date Type Department Care Team ([facility] Contact Info) Description 03/20/2024 Abstract [facility] [address] [place] [address] Miranda Marquez MD [address] [place], [place] [phone] Social History Tobacco Use Types Packs/Day Years [...] Upcoming Encounters Date Type Department Care Team ([facility] Contact Info) Description 11/04/2024 1:30 PM EDT [facility] [address] [place] [phone] Galen Pratt, DPHeide [address] [place] [address] documented as of this encounter Visit Diagnoses Not on filedocumented in this encounter Additional Health Concerns Assessment Noted Time PHQ-9 Depression Total Score: 6 11/15/19 23 4:09 PM EDT documented as of this encounter Care Teams Brand Attendant Relationship Specialty Start Date End Date Miranda Marquez MD [address] [place] [address] PCP - General Family Medicine 06/18/22 Miranda Marquez MD [address] [place] [address] PCP - Devoted 11/11/23 Miranda Marquez MD [address] [place] [address] PCP - ACO Reach 03/26/24 05/13/24 Miranda Tamayo, RN [address] [place] [address] Registered Nurse Family Medicine 01/16/24 05/12/24 Jairo Awad, SARAH [address] [facility] [address] [place] [phone] Licensed Practical Nurse Family Medicine 05/12/24 documented as of this encounter
--- OUTSIDE RECORDS SUMMARY | 2024-10-27 13:27 | XMS_ITS | Encounter Summary ---
Author Organization [facility] Healthcare Address [address] [place] [address] Care Team Providers Care Breast Surgeon Name Role Phone Miranda Marquez MD Primary Care Provider Miranda Marquez MD Unavailable [phone] AwadJairo LPN Unavailable [phone] Reason for Visit * Reason Comments Med Refill Encounter Details Date Type Department Care Team ([facility] Contact Info) Description 10/23/2024 Refill [facility] [address] [place] [phone] Brenda Andersen BEATER ENGINEER [address] [place], [place] [phone] Subacute cough Social History Tobacco Use Types Packs/Day Years [...] Upcoming Encounters Date Type Department Care Team ([facility] Contact Info) Description 11/04/2024 1:30 PM EDT Procedure Visit [facility] [address] [place] [phone] Galen Pratt DPM [address] [place] [address] documented as of this encounter Visit Diagnoses Diagnosis Subacute cough documented in this encounter Additional Health Concerns Assessment Noted Time PHQ-9 Depression Total Score: 6 11/15/19 23 4:09 PM EDT documented as of this encounter Care Teams Breast Surgeon Relationship Specialty Start Date End Date Miranda Marquez MD [address] [place] [address] PCP - General Family Medicine 06/18/22 Miranda Marquez MD [address] [place] [address] PCP - Devoted 11/11/23 Jairo Awad LPN [address] [place] [phone] Licensed Practical Nurse Family Medicine 05/12/24 documented as of this encounter
--- OUTSIDE RECORDS SUMMARY | 2024-10-27 13:27 | XMS_ITS | Encounter Summary ---
Author Organization [facility] Healthcare Address [address] [place] [address] Care Team Providers Care Motion Study Analyst Name Role Phone Miranda Marquez MD Primary Care Provider [phone] Miranda Marquez MD Unavailable [phone] Jairo Awad LPN Unavailable [phone] Encounter Details Date Type Department Care Team (Latest Contact Info) Description 06/02/2024 [facility] [address] [place] [address] Rachel Palomino NP [address] [place], [place] [phone] CBC and differential Social History Tobacco Use [...] Description 11/04/2024 1:30 PM EDT Procedure [facility] [address] [place] [phone] Galen Pratt DPM [address] [place] [address] documented as of this encounter Visit Diagnoses Not on filedocumented in this encounter Additional Health Concerns Assessment Noted Time PHQ-9 Depression Total Score: 6 11/15/19 23 4:09 PM EDT documented as of this encounter Care Teams Motion Study Analyst Relationship Specialty Start Date End Date Miranda Marquez MD [address] [place] [address] PCP - General Family Medicine 06/18/22 Miranda Marquez MD [address] [facility] [place] [address] PCP - Devoted 11/11/23 Jairo Awad LPN [address] [place] [id number] Licensed Practical Nurse Family Medicine 05/12/24 documented as of this encounter
--- OUTSIDE RECORDS SUMMARY | 2024-10-27 13:27 | XMS_ITS | Clinical Summary ---
Author Organization [facility] Address [address] [place] [address] Care Team Providers Care Guard Range Name Role Phone Unavailable Primary Care Provider [...]
--- OUTSIDE RECORDS SUMMARY | 2024-10-27 13:27 | XMS_ITS | Encounter Summary ---
Author Organization [facility] Address [id number] [address] [place] [address] Care Team Providers Care Mainframe Systems Programmer Name Role Phone Miranda Marquez MD Primary Care Provider [phone] Encounter Details Date Type Department Care Team ([facility] Contact Info) Description 03/17/2024 Telephone [facility] [address] [facility] [address] [place] [phone] Nadeen Gonzales COA Social History Tobacco Use [...] 3:30 PM EST Avastin PA APPROVED with [facility] Request#[id number] documented in this encounter Plan of Treatment [...] on filedocumented in this encounter Care Teams Mainframe Systems Programmer Relationship Specialty Start Date End Date Miranda Marquez MD [address] [place] [address] PCP - General Family Medicine 07/19/16 documented as of this encounter
--- OUTSIDE RECORDS SUMMARY | 2024-10-27 13:27 | XMS_ITS | Encounter Summary ---
Author Organization [facility] Healthcare Address [address] [place] [address] Care Team Providers Care Manager Trust Name Role Phone Miranda Marquez MD Primary Care Provider Miranda Marquez MD Unavailable [phone] Jairo Awad LPN Unavailable [phone] Encounter Details Date Type Department Care Team (Late Contact Info) Description 10/27/2024 Patient Outreach [facility] [address] [place] [address] Jairo Awad LPN [address] [facility] [address] [place] [id number] Social History Tobacco Use Types Packs/Day Years [...] EDT Procedure Visit [facility] [address] [place] [address] Galen Pratt DPM [address] [place] [address] documented as of this encounter Visit Diagnoses Diagnosis Mixed hyperlipidemia- Primary Mixed hyperlipidemia Hypothyroidism, unspecified type documented in this encounter Additional Health Concerns Assessment Noted Time PHQ-9 Depression Total Score: 6 11/15/19 23 4:09 PM EDT documented as of this encounter Care Teams Manager Trust Relationship Specialty Start Date End Date Miranda Marquez MD [address] [facility] [place] [address] PCP - General Family Medicine 06/18/22 Miranda Marquez MD [address] [facility] [place] [address] PCP - Devoted 11/11/23 Jairo Awad LPN [address] [facility] [address] [place] [address] Licensed Practical Nurse Family Medicine 05/12/24 documented as of this encounter
--- OUTSIDE RECORDS SUMMARY | 2024-10-27 13:27 | XMS_ITS | Encounter Summary ---
Author Organization [employer] Address [id number] [address] [place] [address] Care Team Providers Care Center Customer Service Associate Name Role Phone Miranda Marquez MD Primary Care Provider [phone] Encounter Details Date Type Department Care Team ([facility] Contact Info) Description 07/07/2024 Telephone [facility] [address] [place] [address] Lin Garcia Social History Tobacco [...] on filedocumented in this encounter Care Teams Center Customer Service Associate Relationship Specialty Start Date End Date Miranda Marquez MD [address] [place] [address] PCP - General Family Medicine 07/19/16 documented as of this encounter
--- OUTSIDE RECORDS SUMMARY | 2024-10-27 13:27 | XMS_ITS | Encounter Summary ---
Author Organization [facility] Address [address] [place] [address] Care Team Providers Care Nutrition Therapist Name Role Phone Miranda Marquez MD Primary Care Provider [phone] Miranda Marquez MD Unavailable [phone] Jairo Awad LPN Unavailable [phone] Encounter Details Date Type Department Care Team ([facility] st Contact Info) Description 10/27/2024 Telephone [facility] [address] [place] [address] Miranda Marquez MD [address] [place], [place] [id number] Social History Tobacco Use Types Packs/Day Years [...] on file documented as of this encounter Progress Notes * Jairo Awad LPN - 10/27/2024 12:35 PM EDT <October 27, 2024, 12:35 - Jairo Awad LPN> Discussed encounter et Patient's, Kennedy Fischer, 1940, history with Rachel Palomino NP. Phone communication initiated to [facility] ([facility]) at [phone], Ext. [phone] Brook Nguyen. This nurse provides Patient's demographic information et advises of provider response. Per Angelina Palomino NP, Patient is recommended remaining on Xarelto at this time due to unprovoked PE. documented in this encounter Miscellaneous Notes * Telephone Encounter - Liudmila Corea - 10/27/2024 10:09 AM EDT [facility] calling that pt is inpatient and he is in for gross Hemuturia and the hospital needs to figure out what's going on with his xaralto, if he has another underlying condition as to why he has been on it for so long. Call [phone] x [phone] Wendy is waiting for a callback. documented in this encounter Plan of Treatment Upcoming Encounters Date Type Department Care Team (Late st Contact Info) Description 11/04/2024 1:30 PM EDT Procedure [facility] [address] [facility] [place] [address] Galen Pratt DPM [address] [place], [place] [phone] documented as of this encounter Visit Diagnoses Diagnosis Mixed hyperlipidemia- Primary Mixed hyperlipidemia History of pulmonary embolism Personal history of venous thrombosis and embolism Acquired hypothyroidism Unspecified hypothyroidism documented in this encounter Additional Health Concerns Assessment Noted Time PHQ-9 Depression Total Score: 6 11/15/19 23 4:09 PM EDT documented as of this encounter Care Teams Nutrition Therapist Relationship Specialty Start Date End Date Miranda Marquez MD [address] [place], [place] [phone] PCP - General Family Medicine 06/18/22 Miranda Marquez MD [address] [place] [address] PCP - Devoted 11/11/23 Jairo Awad, EXTRACTION OPERATOR [address] [place] [address] Licensed Practical Nurse Family Medicine 05/12/24 documented as of this encounter
--- OUTSIDE RECORDS SUMMARY | 2024-10-27 13:27 | XMS_ITS | Clinical Summary ---
Author Organization [employer] tem Address [id number] [address] [place] [address] Care Team Providers Care Nurse'S Aides Teacher Name Role Phone Miranda Marquez MD Primary Care Provider [phone] Allergies Active Allergy Reactions Criticality Noted Date [...] Problem Noted Date Diagnosed Date Resolved Date shelter (current) use of anticoagulants 03/19/2022 03/22/2022 Acute pulmonary embolism wit hout acute cor pulmonale, unspecified pulmonary embolism type 03/11/2022 03/22/2022 Encounters Date Type Department Care Team Description 09/30/2024 12:45 PM EDT Office Visit [facility] [address] [place] [address] Brittny Soni MD PAC (premature atrial contraction) (Primary Dx) 09/30/2024 Travel 09/29/2024 Telephone [facility] [address] [place] [address] Jerilyn Flores CMA 09/29/2024 Telephone [facility] [address] [place] [address] Jerilyn Flores CMA from Last [...] 7:01 PM 03/11/2022 5:51 PM Care Teams Nurse'S Aides Teacher Relationship Specialty Start Date End Date Miranda Marquez MD [address] [place] [address] PCP - General Family Medicine 07/19/16
--- OUTSIDE RECORDS SUMMARY | 2024-10-27 13:28 | XMS_ITS | Encounter Summary ---
Author Organization [facility] Address [facility] [place] [address] [address] Care Court Orderly Name Role Phone Miranda Marquez MD Primary Care Provider [phone] Nelson Gruber Unavailable [phone] Matt Winters MD Unavailable Cristopher Bernstein MD Unavailable [phone] Source Comments In the event this information is protected by the Federal Confidentiality of Alcohol and Drug AbusePatient Records regulations: The Federal rules restrict any use of the information to criminally investigate or prosecute any alcohol or drug abuse patient.[facility] Encounter Details Date Type Department Care Team (Late st Contact Info) Description 05/12/2016 Abstract Radiation Oncology [address] [id number] Nelson Knight (Res)(Hist), [address] [place] [address] Social History Tobacco Use Types [...] on filedocumented in this encounter Care Teams Court Orderly Relationship Specialty Start Date End Date Miranda Marquez MD [address] [place] [address] PCP - General Family Medicine 04/04/16 Nelson Gruber [address] [facility] [address] [place] [address] Referring Ophthalmology 04/04/16 [place] [address] [place] [address] Radiation Oncology 04/30/16 Cristopher Bernstein MD [address] [facility] [[email or web address]] [address] [place] [address] Referring Ophthalmology 03/23/24 documented as of this encounter
--- OUTSIDE RECORDS SUMMARY | 2024-10-27 13:28 | XMS_ITS | Clinical Summary ---
Author Organization [facility] Healthcare Address [address] [place] [address] Care Team Providers Care Driver Sales Name Role Phone Miranda Marquez MD Primary Care Provider [phone] Miranda Marquez MD Unavailable [phone] AwadJairo LPN Unavailable [phone] Allergies Active Allergy Reactions Criticality Noted [...] 2024. 30 tablet 2 04/11/19 25 Active albuterol HFA 90 mcg/act inhalerIndication [...] 200 MG tablet Take by mouth Active omeprazole (PriLOSEC) [address] capsuleIndication s:Subacute cough TAKE 1 CAPSULE BY MOUTH IN THE MORNING. TAKE BEFORE MEALS. DO NOT CRUSH OR CHEW. 90 capsule 10/24/19 25 Active rivaroxaban (Xarelto) 15 MG tabletIndications :Acute pulmonary embolism without acute cor pulmonale, unspecified pulmonary embolism type (HCC) Take by mouth, 15mg BID x 21 days, then take 20mg one time daily. Take with food. 42 tablet 03/19/19 25 025 Discontinued omeprazole (PriLOSEC) [address] capsuleIndication s:Subacute cough TAKE 1 CAPSULE (20 MG) BY MOUTH IN THE MORNING. TAKE BEFORE MEALS. DO NOT CRUSH OR CHEW.. 90 capsule 05/18/19 25 025 Discontinued terbinafine (LamISIL) 250 MG [...] Date Resolved Date Metastases to the liver 09/24/202206/2022 Encounters Date Type Department Care Team Description 10/27/2024 Patient Outreach [facility] [address] [facility] [place] [address] Jairo Awad LPN 10/27/2024 Telephone [facility] [address] [facility] [place] [phone] Miranda Marquez MD 10/23/2024 Refill [facility] [address] [facility] [place] [address] Brenda Andersen NP Subacute cough 10/18/2024 1:00 PM EDT Ancillary Procedure [facility] [address] [facility] [address] [place] [address] 10/18/2024 Travel 10/12/2024 Clinisync Result Encounter [facility] External Department Unsolicited Provider, Generic External Data 10/07/2024 Telephone [facility] [address] [facility] [place] [address] Sugar Marte MA 09/29/2024 Telephone [facility] [address] [facility] [place] [address] Miranda Marquez MD 09/28/2024 9:30 AM EDT [facility] [address] [facility] [place] [address] Miranda Marquez MD Elevated glucose (Primary Dx); Abnormal EKG 09/28/2024 Bamboo flowsheet [facility] [address] [facility] [place] [address] Miranda Marquez MD 09/28/2024 Travel 09/24/2024 [facility]phone [facility] [address] [facility] [place] [address] Cydney Rawls MA 08/25/2024 [facility] [address] [facility] [place] [address] Miranda Smallwood MA 08/18/2024 [facility] [address] [facility] [place] [address] Miranda Marquez MD 08/11/2024 Telephone [facility] [address] [facility] [place] [address] Sugar Marte MA from Last 3 Months [...] PM EDT Procedure Visit [facility] [address] [place] [address] Galen Pratt, DPHeide [address] [place], [place] [phone] Health Maintenance Due Date Last Done Comments Pneumococcal Vaccine: 65+ Years (1 of 1 - PCV) 993 Influenza Vaccine (#1) 2024 Procedures Procedure Name Priority Date/Time Associated Diagnosis Comments PFT COMPLETE Routine 10/18/2024 1:33 PM EDT Subacute cough [facility] URINE MICROSCOPIC ONLY Routine 10/12/2024 1:55 PM EDT TB[facility] UA (CLEAN/CATCH) STOCK HOUSE WORKER/MICRO IF IND. Routine 10/12/2024 1:55 PM EDT [facility] APTT Routine 10/12/2024 1:50 PM EDT [facility] PROTHROMBIN TIME INR W/O COUM Routine 10/12/2024 1:50 PM EDT ALL CBC WITH AUTO DIFF Routine 10/12/2024 1:50 PM EDT ALL BASIC METABOLIC PANEL Routine 10/12/2024 1:50 PM EDT POCT GLYCOSYLATED HEMOGLOBIN (HGB A1C) Routine 09/28/2024 10:22 AM EDT Elevated glucose from Last 3 Months Results * Pulmonary Function Test (10/18/2024 1:33 [...] viewed with this in mind. Rachel Palomino NP IMG XR PROCEDURES Final Result * (ABNORMAL) TBH URINE MICROSCOPIC ONLY (10/12/2024 [...] 3:18 PM EDT Generic External Data Provider SABRINABILLYNC Cosme salvadorl Result [facility] * (ABNORMAL) TBH UA (CLEAN/CATCH) STOCK HOUSE WORKER/MICRO IF IND. (10/12/2024 1:55 PM EDT) COLOR [...] PM EDT 10/12/2024 2:06 PM EDT Narrative CLINISYWY - 10/12/2024 3:18 PM EDT Generic External Data Provider FLAKO F madeleinel Result Performing Organization Address [facility] Co de Phone Number [facility] * [facility] PROTHROMBIN TIME INR W/O COUM (10/12/2024 1:50 PM EDT) PROTHROMBIN TIME 11.3 9.0 - 11.6 sec TBH TBH INR 1.07 TBH Comment: DESIRED INR: 2.0-3.0 CONDITIONS NOT LISTED BELOW 2.5-3.5 FOR PROSTHETIC HEART VALVE REPLACEMENT 2.5-3.5 RECURRENT THROMBOSIS 10/12/2024 1:50 PM EDT 10/12/2024 1:58 PM EDT Narrative CLINISYNC - 10/13/2024 3:34 PM EDT us Generic External Data Provider CLINISYNC F inal Result [facility] * [facility] APTT (10/12/2024 1:50 PM EDT) Pathologist [facility] PARTIAL THROMBOPLASTIN TIME 28.8 22.3 - 36.2 sec [facility] 10/12/2024 1:50 PM EDT 10/12/2024 1:58 PM EDT Narrative CLINISYNC - 10/13/2024 3:34 PM EDT Generic External Data Provider CLINISYNC F inal Result [facility] * (ABNORMAL) ALL CBC WITH AUTO DIFF (10/12/2024 1:50 PM EDT) Pathologist [facility] TB WBC 4.3 4.0 - 11.0 10 3/uL TB TB RBC 4.09(L) 4.70 - 6.10 10 6/uL TBH TB HGB 12.2(L) 14.0 - 18.0 g/dL TB TB HCT 36.5(L) 42.0 - 54.0 % TB TB MCV 89.2 80.0 - 94.0 fL TB TB MCH 29.8 25.9 - 34.0 pg TBH TB MCHC 33.4 29.9 - 35.2 g/dL TB TB RDW 13.9 11.0 - 15.0 % TB TB PLT 145(L) 150 - 450 10 3/uL TB TB MPV 10.9 9.5 - 13.5 fL TB NEUTROPHILS PERCENT AUTO 64.6 43.0 - 75.0 % TBH LYMPHOCYTES PERCENT AUTO 24.9 20.5 - 60.0 % TBH MONOCYTES PERCENT AUTO 7.4 1.7 - 12.0 % TBH TBH EO % 2.1 0.9 - 7.0 % TBH BASOPHILS PERCENT AUTO 0.5 0.2 - 2.0 % TB IMMATURE GRANULOCYTES PCT AUTO 0.5 0.0 - 0.5 % TB NEUTROPHILS ABSOLUTE AUTO 2.8 1.4 - 6.5 [...] PM EDT 10/12/2024 1:58 PM EDT Narrative CLINISYWY - 10/12/2024 2:38 PM EDT Generic External Data Provider CLINISYNC F grant Result Performing Organization Address [facility] Co de Phone Number [facility] * (ABNORMAL) ALL BASIC METABOLIC PANEL [...] 0.70 - 1.30 mg/dL TBH TBH EGFR-AF TOGOLESE >60 >=60 mL/min/1.7 3m 2 TBH TBH EGFR-NON AF TOGOLESE 57(L) >=60 mL/min/1.7 3m 2 TBH BUN CREATININE RATIO 14.0 TBH CALCIUM 8.8 8.5 - 10.1 mg/dL TBH 10/12/2024 1:50 PM EDT 10/12/2024 1:58 PM EDT Narrative CLINISYNC - 10/12/2024 2:29 PM EDT Generic External Data Provider CLINISYNC F inal Result Performing Organization Address City/[facility]/ZIP Co de Phone Number CL[facility]ISYNC [facility] * POCT glycosylated hemoglobin (Hb A1C) docked device (09/28/2024 10:22 AM EDT) Hemoglobin A1C 5.5 Blood Venous blood specimen / Unknown 09/28/2024 10:22 AM EDT Miranda Marquez MD POINT OF CARE TEST ENTER/EDIT ORDERABLES Final Result from Last 3 Months Insurance [facility] [place] [address] [facility] Care Teams Driver Sales Relationship Specialty Start Date End Date Miranda Maruqez MD [address] [place] [address] PCP - General Family Medicine 06/18/22 Miranda Marquez MD [address] [place] [address] PCP - Devoted 11/11/23 Jairo Awad, SARAH [address] [facility] [address] [place] [address] Licensed Practical Nurse Family Medicine 05/12/24
--- OUTSIDE RECORDS SUMMARY | 2024-10-27 13:28 | XMS_ITS | Clinical Summary ---
Author Organization [facility] Address [address] [place], [place] [address] Care Team Providers Care Brand Ambassador Promotional Model Name Role Phone Miranda Marquez MD Primary Care Provider Nelson Gruber Unavailable [phone] Matt Winters MD Unavailable Cristopher Bernstein MD Unavailable [phone] Allergies Active Allergy Reactions Criticality Noted [...] Take by mouth once daily. Active vit C,I-Bw-rjtvy-rosario tein-zeaxan [id number] ab-foyf-gh-mg capIndications: Choroid melanoma of left eye (HCC) [...] - 8.0 g/dL 05/15/2016 11:20 AM EDT [facility] Albumin 4.4 3.9 - 4.9 g/dL 05/15/2016 11:20 AM [facility] Calcium 9.4 8.5 - 10.2 mg/dL 05/15/2016 11:20 AM [facility] Bilirubin, Total 0.8 0.2 - 1.3 mg/dL 05/15/2016 11:20 AM [facility] Alkaline Phosphatase 129(H) 36 - 108 U/L 05/15/2016 11:20 AM [facility] AST 26 14 - 40 U/L 05/15/2016 11:20 AM [facility] Glucose 121(H) 74 - 99 mg/dL 05/15/2016 11:20 AM [facility] Comment: The [place] Diabetes Association (ADA) provides guidance for cutoff [...] Standards of Medical Care in Diabetes 2016, Canadian Diabetes Association. Diabetes Care. 2016.39(Suppl 1). BUN 14 9 - 24 mg/dL 05/15/2016 11:20 AM T [facility] Creatinine 1.03 0.73 - 1.22 mg/dL 05/15/2016 11:20 AM EDT [facility] Sodium 139 136 - 144 mmol/L 05/15/2016 11:20 AM EDT [facility] Potassium 4.2 3.7 - 5.1 mmol/L 05/15/2016 11:20 AM EDT [facility] Chloride 98 97 - 105 mmol/L 05/15/2016 11:20 AM EDT [facility] CO2 25 22 - 30 mmol/L 05/15/2016 11:20 AM EDT [facility] Anion Gap 16 9 - 18 mmol/L 05/15/2016 11:20 AM EDT [facility] ALT 29 10 - 54 U/L 05/15/2016 11:20 AM EDT [facility] eGFR- >60 05/15/2016 11:20 AM T [facility] eGFR-All Other Races >60 . 05/15/2016 11:20 AM T [facility] Comment: eGFR (Estimated GFR) Units of [...] us Baudilio Lizama MD LABORATORY Final Result [facility] [address] [place] [address] from Last 3 Months or Most Recently Relevant to Health Maintenance Insurance [facility] H[facility] Care Teams Brand Ambassador Promotional Model Relationship Specialty Start Date End Date Miranda Marquez MD [address] [place] [address] PCP - General Family Medicine 04/04/16 Nelson Gruber [address] [facility] [[email or web address]] [address] [place] [address] Referring Ophthalmology 04/04/16 [place] [address] [place] [address] Radiation Oncology 04/30/16 Cristopher Bernstein MD [address] [place] [address] Referring Ophthalmology 03/23/24
--- NOTE | 2024-10-27 13:46 | PM.CN ---
Consult Note: [facility] Data of Consult Consult date: 10/27/24 Requesting Physician: Claudette Nieto MD Primary Care Provider: LEODAN FERNANDES Consult Narrative Reason for consult: hematuria, clot retention Narrative: 84 year old male underwent extensive TURBT/TURP for large volume bladder tumors 10/20/2024. Pt presented to ER yesterday due to worsening gross hematuria and clogged blair. He states his mild postop hematuria worsened and clogged up his catheter. He did not present to the ER the night prior as recommended. He has been on his Xarelto. In the ER they started CBI without manual irrigation despite instruction. They also noted diffuse penile edema consistent with balanitis. Hgb has remained stable, WBC wnl. Vitals stable. He was admitted to the hospialist for further mgmt, Urology consulted. Floor nurses instructed to manually irrigate. Significant clots removed overnight per nursing, none today. Now CBI clamped, output is crystal clear. Patient states he has been doing weeding at home. Denies fever, chills, nausea, emesis or suprapubic pain. His penis is hurting. cc:: CC: Claudette Nieto MD Review of Systems ROS Status of ROS 10 or more systems reviewed and unremarkable except as noted in history and below Constitutional Denies: fever or chills Eyes Denies: change in vision or blurry vision Cardiovascular Denies: chest pain or palpitations Respiratory Denies: shortness of breath or cough Gastrointestinal Denies: abdominal pain, nausea or vomiting Genitourinary Reports: blood in urine; Denies: painful urination Musculoskeletal Denies: back pain or neck pain Neurological Denies: numbness in extremities or weakness in extremities [facility] Medical History History of blood transfusion ?Z92.89 - Personal history of other medical treatment (ICD-10) H/O reduction of closed fracture ?Z87.81 - Personal history of (healed) traumatic fracture (ICD-10) Leg fracture ?S82.90XA - Unspecified fracture of unspecified lower leg, initial encounter for closed fracture (ICD-10) BPH with obstruction/lower urinary tract symptoms ?N40.1 - Benign prostatic hyperplasia with lower urinary tract symptoms (ICD-10) ?N13.8 - Other obstructive and reflux uropathy (ICD-10) Anticoagulated ?Z79.01 - skilled nursing (current) use of anticoagulants (ICD-10) Bleeding ulcer ?K28.4 - Chronic or unspecified gastrojejunal ulcer with hemorrhage (ICD-10) Shoulder pain ?M25.519 - Pain in unspecified shoulder (ICD-10) Cataract ?H26.9 - Unspecified cataract (ICD-10) 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 ?C69.32 - Malignant neoplasm of left choroid (ICD-10) Pulmonary embolism (~2022) ?I26.99 - Other pulmonary embolism without acute cor pulmonale (ICD-10) Abnormal EKG ?R94.31 - Abnormal electrocardiogram [ECG] [EKG] (ICD-10) Vitamin D deficiency ?E55.9 - Vitamin D deficiency, unspecified (ICD-10) Low hematocrit ?D64.9 - Anemia, unspecified (ICD-10) Chronic pain ?G89.29 - Other chronic pain (ICD-10) Hyperlipidemia ?E78.5 - Hyperlipidemia, unspecified (ICD-10) Gout ?M10.9 - Gout, unspecified (ICD-10) GERD (gastroesophageal reflux disease) ?K21.9 - Gastro-esophageal reflux disease without esophagitis (ICD-10) Elevated antinuclear antibody (VESNA) level ?R76.8 - Other specified abnormal immunological findings in serum (ICD-10) Atypical chest pain ?R07.89 - Other chest pain (ICD-10) Age-related cognitive decline ?R41.81 - Age-related cognitive decline (ICD-10) Abnormal chest x-ray ?R93.89 - Abnormal findings on diagnostic imaging of other specified body structures (ICD-10) Hematuria ?R31.9 - Hematuria, unspecified (ICD-10) Hearing loss ?H91.90 - Unspecified hearing loss, unspecified ear (ICD-10) Surgical History History of esophagogastroduodenoscopy (EGD) ?Z98.890 - Other specified postprocedural states (ICD-10) H/O cystoscopy ?Z98.890 - Other specified postprocedural states (ICD-10) H/O eye surgery ?Z98.890 - Other specified postprocedural states (ICD-10) Family History Other Family history of hypertension Social History Within the past year, how often did you have a drink containing alcohol: never Score interpretation: A score less than 4 is consistent with normal alcohol consumption. Smoking status: Former smoker Non-prescribed substance use: denies use Highest level of school completed/degree received: some college, no degree Little interest or pleasure in doing things: not at all Feeling down, depressed, or hopeless: not at all Meds Home Medications and Allergies Home Medications ?Medication ?Instructions ?Recorded ?Confirmed ?Type albuterol sulfate 90 mcg/actuation 2 inh inhalation Q4H PRN shortness 08/19/24 10/26/24 History aerosol inhaler of breath or wheezing atorvastatin 80 mg tablet 80 mg PO DAILY 08/19/24 10/26/24 History cholecalciferol (vitamin D3) 50 2,000 unit PO DAILY 08/19/24 10/26/24 History mcg (2,000 unit) capsule finasteride 5 mg tablet 5 mg PO DAILY 08/19/24 10/26/24 History levothyroxine 88 mcg tablet 88 mcg PO DAILY 08/19/24 10/26/24 History magnesium glycinate 100 mg (as 100 mg PO DAILY 08/19/24 10/26/24 History glycinate) tablet mecobalamin (vitamin B12) 2,500 2,500 mcg PO DAILY 08/19/24 10/26/24 History mcg chewable tablet omeprazole 20 mg capsule,delayed 20 mg PO DAILY 08/19/24 10/26/24 History release potassium 99 mg tablet 99 mg PO DAILY 08/19/24 10/26/24 History rivaroxaban 20 mg tablet (Xarelto) 20 mg PO Q24H 08/19/24 10/26/24 History terbinafine HCl 250 mg tablet 250 mg PO DAILY 08/19/24 10/20/24 History trazodone 150 mg tablet 150 mg PO QPM 08/19/24 10/26/24 History vitamin A-vitamin C-vit E-min 1 tab PO DAILY 08/19/24 10/26/24 History tablet (Vision tablet) vitamin K2 100 mcg capsule 100 mcg PO DAILY 08/19/24 10/26/24 History oxybutynin chloride 5 mg tablet 5 mg PO Q8H PRN bladder spasms #60 10/20/24 10/26/24 Rx tabs Allergies Allergy/AdvReac Type Severity Reaction Status Date / Time Iodinated Contrast Media Allergy Unknown Verified 10/26/24 11:51 Exam Narrative Exam Narrative: No acute distress, appears nontoxic Nonlabored respirations, symmetric chest rise, on room air Normal rate and rhythm, no peripheral edema No abdominal tenderness to palpation, non distended 22Fr 3way in place, CBI clamped, clear output. Paraphimosis with foreskin edema noted, reduced at bedside. Mild periurethral mucosal discharge Moves all extremities, no deformities Alert and oriented x 4, no acute focal deficits Skin dry, intact Appropriate, cooperative Constitutional Vital Signs, click to edit/add: Last Vital Signs Temp 97.8 F 10/27/24 11:44 Pulse 59 L 10/27/24 11:44 Resp 18 10/27/24 11:44 BP 126/67 10/27/24 11:44 Pulse Ox 98 10/27/24 11:44 O2 Del Method Room Air 10/27/24 11:44 Results Labs Labs: Short CBC 10/26/24 10/27/24 Range/Units 21:37 06:10 WBC 5.7 (4.0-11.0) 10^3/uL Hgb 9.6 L 10.2 L (14.0-18.0) g/dL Hct 28.9 L 30.7 L (42.0-54.0) % Plt Count 183 (150-450) 10^3/uL BMP 10/27/24 06:10 Sodium 139 Potassium 4.3 Chloride 105 Carbon Dioxide 28.4 BUN 15.0 Creatinine 0.95 Glucose 102 Calcium 8.5 Assessment and Plan Assessment and Plan (1) Hematuria: (2) Prostate tumor: (3) Bladder neoplasm: (4) Anemia: (5) Paraphimosis: Plan 84 year old male as above 1 week s/p extensive TURBT admitted with gross hematuria/clot retention and paraphimosis. Paraphimosis reduced at bedside with immediate relief Hematuria secondary to anticoagulation and pt activity postop extensive resection. Counseled pt on non-strenuous activity. Resolved after manual irrigation and CBI. -Dc blair, voiding trial now. If unable to void, replace blair and f/u in 1 week for repeat trial -Prophy dose of Rocephin for blair removal postop -Hold xarelto x 48 hrs if urine remains clear -F/u in 1 week for pathology review
--- NOTE | 2024-10-27 14:25 | SWNOTE1 ---
Medicare Outpatient Observation Notice reviewed and discussed with patient. Pt. verbalized understanding and signed the form. Original given to patient and copy placed in patient?s chart.
--- NOTE | 2024-10-27 14:25 | SWNOTE1 ---
SW met with pt to discuss dc needs. Pt lives at home with his . Pt has a cane at home, but does not always use it. Pt has no services coming in to the home at this time. Pt did ask about services coming in to clean his home and if it would be covered under insurance. SW did let pt know that we have a private caregiver list, but it is out of pocket. Someone to clean the home is not covered by insurance. Pt voiced understanding. 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 He stated it is hard to find someone to trust. He does have kids and they do help if they ask. SW recommended asking his kids for some extra assistance since he is not feeling too great and will have to take it easy. Pt in agreement. At this time no anticipated discharge needs. SW to follow as needed.
--- NOTE | 2024-10-27 14:45 | CM.NOTE ---
Updated RN on blair removal per Dr. Nieto. Procedure completed RN received orders per Dr. Pradhan for cath removal and instructions for care. RN states pt was told by Dr. Pradhan he could discharge this evening. Clarified with Dr. Nieto, no discharge today, possible discharge to home tomorrow. Updated pt and pt will contact and son for update.
[2024-10-27 15:38] VITALS: BP 120/67; PULSE 80; TEMP 36.3; O2SAT 98
[2024-10-27 20:00] VITALS: BP 109/55; PULSE 99; TEMP 36.8; O2SAT 95
[2024-10-28] VITALS: BP 112/65; PULSE 59; TEMP 36.6; O2SAT 96
[2024-10-28 04:00] VITALS: BP 106/62; PULSE 71; TEMP 37.6; O2SAT 94
[2024-10-28] MEDS: PANTOPRAZOLE SODIUM 40 MG TABLET.DR PO (06:15)
[2024-10-28] MEDS: LEVOTHYROXINE SODIUM 88 MCG TABLET PO (06:15)
--- NOTE | 2024-10-28 07:30 | CM.NOTE ---
Rounds made with Dr. Nieto, pt will discharge to home today. Pt will f/u with Dr. Pradhan in one week.
[2024-10-28 07:41] VITALS: BP 114/68; PULSE 88; TEMP 36.7; O2SAT 93
--- NOTE | 2024-10-28 08:44 | SWNOTE1 ---
SW did review PT/OT notes and no needs identified at this time.
--- NOTE | 2024-10-28 08:59 | PM.DS1 ---
DS: Providers Provider Date of admission: 10/27/24 13:10 Primary care physician: LEODAN FERNANDES Consults: 10/26/24 15:26 Consult to Urology Routine Consulting Provider: Ainsley Pradhan Reason for consultation: hemeaturia after TURP Has provider been notified: Yes 10/26/24 16:45 Consult to Urology Routine Consulting Provider: Ainsley Pradhan Reason for consultation: Hematuria 10/27/24 08:41 Occupational Therapy Eval and Treat Routine Reason for consultation: Weakness Physical Therapy Eval and Treat Routine Reason for consultation: Weakness DS: Diagnosis Discharge Diagnosis (1) Hematuria: (2) Prostate tumor: (3) Bladder neoplasm: (4) Anemia: (5) Paraphimosis: Plan As listed above, below and others that are not listed DS: Summary Hospital Course Hospital Course: Mr. Alan is an 84-year-old gentleman who came in with gross hematuria. Gross hematuria after bladder and prostate tumor resection completed on 10/[address] Pradhan in the setting of patient taking Xarelto. Acute blood loss anemia secondary to anticoagulation. Baseline hemoglobin in August was 13 and outs 10. I had accepted to admit the patient to the medical floor. I started the bladder irrigation. Hematuria had resolved overnight. Requested UA to rule out UTI. Pending Consulted urology to proceed with additional recommendation as deemed to be appropriate Hold the Xarelto Started patient on iron supplementation. Hematuria was cleared up. Cole catheter was removed. Patient is able to void. Cleared by urology to go home. History of PE in 2021. Patient has been on Xarelto since time. Patient denied any history of 2nd or 3rd PE. We were able to connect with his PCP. Patient was kept on Xarelto due to history of unprovoked pulmonary embolism 2 years ago. Now the patient is having hematuria which is likely had resolved. Patient would resume his Xarelto in 4-5 days. Patient is instructed to discuss risk and benefit of Xarelto with the primary care doctor and make a decision whether to continue to take it or stop it. Constipation, probable ileus, resolved I start patient on Senokot, Colace, Dulcolax and magnesium citrate. Additional intervention may be needed if no resolution Cachexia, frailty, muscle wasting, moderate protein calorie malnutrition. I started the patient on Ensure twice a day. Patient is to resume drinking Ensure or boost twice a day postdischarge. Recommend weight loss and age-appropriate cancer screening to be handled by PCP in the outpatient setting Patient may need to have a metastatic workup given his prostate and bladder CA to be handled by urology in collaboration with the PCP. Hypothyroidism Resume Synthroid Chronic medical conditions not listed above, incidental findings seen on labs and imaging. These would need to be addressed. Could be addressed when time and condition are appropriate. Could be addressed in the outpatient setting by PCP collaboration with other needed outpatient providers. Goals of care discussion, advance care planning completed on 10/26 Spent about 60 minutes discussing this with the patient and his at the bedside. I explained in simple terms the process of CPR including chest compressions, shocks, intubation and life support. I answered all his questions related to that. Patient seems to request to have all needed medical care including aggressive medical care He has 4 children and the multiple grandchildren His wishes are consistent with a full CODE STATUS. Patient has multiple complex medical issues as listed above and others that are not listed. All appear to be stable. I do not have any clear or strong clinical justification to extend inpatient hospitalization. Patient however will require close and frequent monitoring as well as additional work-up, investigation and therapeutic intervention that could take place from this point on post discharge. That is to prevent relapse, decompensation, rehospitalization and other medical implications. I instructed patient to ask her primary care doctor to obtain [facility] record entirely to address abnormalities seen on labs and imaging that I have and have not addressed during this hospitalization, follow-up on pending blood work, imaging and pathology is if available and to follow-up on needed medical care in the outpatient setting. Time Spent with Patient Time attestation: Total time spent providing and/or coordinating discharge services: Exam Narrative Exam Narrative: [pt is awake and alert. oriented to place, time and person, cachectic and frail in appearance. HEENT: [place] conjunctiva and NL buccal mucosa bitemporal muscle wasting. Neck: Supple, no tenderness Endocrine: No Thyromegaly. Vascular: No JVD or carotid bruit. Lymphatic: No cervical lymphadenopathy. Chest: CTA no DTP. Heart RRR, no extra sound or murmur. Abd: Soft, no tenderness, no rebound and no rigidity. Increase abd girth therefore clinically I could not exclude the possibility of intra abd mass or organomegaly. LE: No cyanosis or clubbing, no varices or edema. Upper and lower extremities muscle wasting atrophy Some swelling of the penile shaft. Cole catheter is removed Neuro: A A O. Nl speech, comprehension and attention. Nl and symetrical motor and tone examination through out. []] Constitutional Vital Signs, click to edit/add: Last Vital Signs Temp 98.0 F 10/28/24 07:41 Pulse 88 10/28/24 07:41 Resp 16 10/28/24 07:41 BP 114/68 10/28/24 07:41 Pulse Ox 93 L 10/28/24 07:41 O2 Del Method Room Air 10/28/24 07:41 Discharge Plan Discharge Disposition: Home Health Service Discharge Medications: New ferrous sulfate 325 mg (65 mg iron) tablet,delayed release (DR/EC) 325 mg PO DAILY Qty: 30 2RF cefuroxime axetil 250 mg tablet 250 mg PO BID 5 Days Qty: 10 0RF Continued atorvastatin 80 mg tablet 80 mg PO DAILY levothyroxine 88 mcg tablet 88 mcg PO DAILY trazodone 150 mg tablet 150 mg PO QPM albuterol sulfate 90 mcg/actuation HFA aerosol inhaler 2 inh INHALATION Q4H PRN (Reason: shortness of breath or wheezing) finasteride 5 mg tablet 5 mg PO DAILY omeprazole 20 mg capsule,delayed release(DR/EC) 20 mg PO DAILY magnesium glycinate 100 mg tablet 100 mg PO DAILY mecobalamin (vitamin B12) 2,500 mcg tablet,chewable 2,500 mcg PO DAILY Vision Tablet 1 tab PO DAILY cholecalciferol (vitamin D3) 50 mcg (2,000 unit) capsule 2,000 unit PO DAILY oxybutynin chloride 5 mg tablet 5 mg PO Q8H PRN (Reason: bladder spasms) Qty: 60 0RF Held Xarelto 20 mg tablet 20 mg PO Q24H Hold Instructions: Resume on 11/01/24. Please discuss with your primary care doctor the need to stay or stop taking this medication 2 years after you had a blood clot. Please discuss with your primary care doctor risk and the benefit of this medication moving forward Discontinued terbinafine HCl 250 mg tablet 250 mg PO DAILY potassium 99 mg tablet 99 mg PO DAILY vitamin K2 100 mcg capsule 100 mcg PO DAILY Activity Detail: NO heavy lifting or strenuous activity Print Language: Serbian Activity Restrictions/Additional Instructions: I may not have addressed or treated all of your medical illnesses or the abnormal blood work or imaging studies during this hospitalization. Please ask your primary care provider to obtain [facility] records entirely to follow up on all of the abnormal physical, laboratory, and imaging findings that I have not addressed. Please return back to the emergency room or seek medical attention if your symptoms worsen or return. Please resume taking Xarelto in 5 days. Please discuss with your primary care doctor risk and the benefit of the Xarelto 2 years after you had a blood clot. Risk of a blood versus risk of a bleed. Please return back to the emergency room if you see any significant amount of blood in the urine Discharging you from [facility] does not mean that your medical care ends here and now. You may still need additional monitoring, work up, investigation, and treatment plan to be handled from this point on by out patient providers including your primary care provider and specialists. For any medication question, please contact your retail pharmacist or your primary care provider. Thank you. Forms: Portal Instructions Referrals: LEODAN FERNANDES [Primary Care Provider, Family Practice] Ainsley Pradhan MD [Physician, Urology] Referral Note: Follow up as scheduled in 1 week for pathology review Follow Up Appointments: Fri. 10/29 2 2:45pm with Dr. Pradhan [facility], [address] [place] [address] [place] [phone]
[2024-10-28] MEDS: ENSURE HP 237 ML LIQUID PO (09:20)
[2024-10-28] MEDS: FERROUS SULFATE 325 MG TABLET PO (09:20)
[2024-10-28] MEDS: ATORVASTATIN CALCIUM 40 MG TABLET 80 MG PO (09:21)
[2024-10-28] MEDS: FINASTERIDE 5 MG TABLET PO (09:21)
[2024-10-28 10:55] VITALS: O2SAT 95
--- NOTE | 2024-10-29 15:51 | CM.DCFOLLOWU ---
1st attempt 10/29/24, no answer
--- NOTE | 2024-11-01 16:42 | CM.DCFOLLOWU ---
Person spoke with:patient How are you feeling? doing well How is your pain?none Did you understand your discharge instructions?yes Do you have any questions about your discharge instructions?no Were you given any prescriptions at discharge?yes Were you able to get your prescriptions filled?yes Do you understand how to take your medications as ordered?yes Do you have any questions about your follow up appointment and do you plan to keep your follow up appointment? reviewed follow ups and he thinks the Urology apt was re-scheduled for the , not sure on time. SW to call tomorrow and find out. He was not aware of follow up with PCP tomorrow, ANITA let him know time Is there anything else that you would like to discuss?no Questions/Comments/Concerns/Other:none
--- NOTE | 2024-11-02 09:21 | SWNOTE1 ---
SW did follow up call with pt and he had voiced his Urology appointment was switched, but he was unsure of time and date. ANITA called and spoke to Elysia and she stated his appointment is 11/03/24 at 10:15 am in [place]. ANITA called pt and had to leave voicemail with date and time of appointment with Urology.
--- NOTE | 2024-11-02 14:20 | CM.DCFOLLOWU ---
Person spoke with: Kennedy How are you feeling? I'm fine How is your pain? No pain Did you understand your discharge instructions? Yes Do you have any questions about your discharge instructions? No Were you given any prescriptions at discharge? Yes Were you able to get your prescriptions filled? Yes Do you understand how to take your medications as ordered? Yes Do you have any questions about your follow up appointment and do you plan to keep your follow up appointment? Yes I am at 's now Is there anything else that you would like to discuss? He had questions about his bill. He was encouraged to call the financial counselors at [phone]. Questions/Comments/Concerns/Other:
== END 2024-10-28 11:42 | disposition home or self-care (01) ==
LOC: ER 15:26 → MS 10-27 13:21
PROVIDERS: Admitting Provider Internal Medicine; Emergency Provider Emergency Medicine; PCP Family Medicine; Visit Provider Internal Medicine
DX: R31.0 Gross hematuria (principal); N48.1 Balanitis; Z87.891 Personal history of nicotine dependence; Z79.01 Long term (current) use of anticoagulants; Z98.890 Other specified postprocedural states; Z86.711 Personal history of pulmonary embolism; R64 Cachexia; R54 Age-related physical debility; D62 Acute posthemorrhagic anemia; E44.0 Moderate protein-calorie malnutrition; E03.9 Hypothyroidism, unspecified; K59.00 Constipation, unspecified; M62.59 Muscle wasting and atrophy, not elsewhere classified, multiple sites; T45.515A Adverse effect of anticoagulants, initial encounter; T83.098A Other mechanical complication of other urinary catheter, initial encounter; N47.2 Paraphimosis; C61 Malignant neoplasm of prostate; C67.9 Malignant neoplasm of bladder, unspecified; Z68.1 Body mass index [BMI] 19.9 or less, adult
CPT/HCPCS: 36415; 51798; 80048; 80053; 81001; 83605; 83735; 85014; 85018; 85025; 96365; 96372; 97161; 97165; 97535; 99285; G0378; J0500; J0696